=== PATIENT | male | born 1950 | race Caucasian/White ===

== ENCOUNTER → 2016-09-05 | Day surgery (SDC) | payer OTHER, MEDICARE ==
[~2016-09-05] VITALS: Ht 188 cm; Wt 115.7 kg
[~2016-09-05] MED LIST: ACTOS30 M1 PO; ASPIRIN EC81 M1 PO; B-121000 MC3 PO; COQ-10100 MG PO; DUREZOL5 ML OD; GLIMEPIRIDE2 MG PO; JANUMET 50-1,01 EACH PO; LISINOPRIL10 M1 PO; MAGNESIUM500 M2 PO; MULTAQ400 M1 PO; OMEGA 3-6-9 11200 MG PO; PLAVIX75 M1 PO; SIMVASTATIN40 M1 PO; TOPROL XL25 M1 PO; VITAMIN D2000 UNI1 PO; XARELTO15 M1 PO; ZYMAXID2.5 ML OD
--- NOTE | 2016-09-05 14:03 | Operative Report ---
Operative/Inv Procedure Report Surgery Date: 09/05/16 Name of Procedure: Cataract extraction lens implantation left eye Pre-Operative Diagnosis: Age-related cataract left eye 20/30 vision 20/80 glare vision Post-Operative Diagnosis: Same Estimated Blood Loss: none Surgeon/Keel Press Operator: CHRISTIE DEJESUS,DARIN Juarez Anesthesia: local monitored anesthesi Complications: None Operative/Procedure Note Note: The patient was brought to the operating room standard monitoring equipment was attached the patient was prepped and draped in the usual fashion for intraocular surgery. A lid speculum was placed to retract the lids. The case was begun by making a temporal incision with a 2.4 mm keratome. The eye was stabilized with a Hunter ring during this incision. 1 mL of non-preserved lidocaine was introduced into the anterior chamber to provide anesthesia. The anterior chamber was then filled and deepened with viscoelastic. A curvilinear capsulorrhexis was achieved using a 30-gauge needle and is a cystotome and capsulorrhexis was finished using a Utrata forceps. A second or paracentesis incision was made temporally with a 1 mm MVR blade. The lens was then hydrodissected with balanced salt solution and found to be rotatable. The lens was emulsified using phacoemulsification and a modified four-quadrant cracking technique. The residual cortical material was removed using automated irrigation and aspiration and as much of the anterior capsular rim was cleaned as well as possible. The posterior capsule was cleaned first with the automated machine on a low setting and then manually with a Angel squeegee. The capsular bag was deepened with viscoelastic. The lens a [Technis 1] 21.0 Diopter placed into the bag under direct visualization and rotated so that the haptics were at 12 and 6:00. Viscoelastic was then removed from the eye by flushing it out and then by automated irrigation and aspiration. The eye was pressurized to a normal tone. 1/10 of a cc of vancomycin solution was introduced into the anterior chamber to provide antibiotic prophylaxis. The wounds were sealed by hydrating the stroma adjacent to them and the eye was left at a proper tone after the wounds were checked and found not to be leaking. The lid speculum was removed from the orbit. Antibiotic and steroid drops were placed on the eye and then the eye was shielded. Monitoring equipment was removed from the patient and the patient was removed from the operative suite to the holding area. The patient tolerated the procedure well and will be seen in the office tomorrow.
== END ==
LOC: STS 03:53
DX: H25.9 Unspecified age-related cataract (principal); I10 Essential (primary) hypertension; E11.9 Type 2 diabetes mellitus without complications; Z79.84 Long term (current) use of oral hypoglycemic drugs; I25.10 Atherosclerotic heart disease of native coronary artery without angina pectoris; Z95.5 Presence of coronary angioplasty implant and graft
CPT/HCPCS: J2250; V2632

== ENCOUNTER 2016-09-12 07:09 | Inpatient (IN) | payer OTHER, MEDICARE ==
[~2016-09-12] VITALS: Ht 185.4 cm; Wt 115.7 kg
[~2016-09-12 07:09] MED LIST changes: -ACTOS30 M1 PO; -B-121000 MC3 PO; -COQ-10100 MG PO; -DUREZOL5 ML OD; -MAGNESIUM500 M2 PO; -MULTAQ400 M1 PO; -OMEGA 3-6-9 11200 MG PO; -VITAMIN D2000 UNI1 PO; -XARELTO15 M1 PO; -ZYMAXID2.5 ML OD
[2016-09-12] MEDS ORDERED: B-121000 MC3 PO (07:39)
[2016-09-12] MEDS ORDERED: MAGNESIUM500 M2 PO (07:40)
[2016-09-12] MEDS ORDERED: OMEGA 3-6-9 11200 MG PO (07:40)
[2016-09-12] MEDS ORDERED: VITAMIN D2000 UNI1 PO (07:40)
[2016-09-12 07:53] LABS: ABSOLUTE LYMPH COUNT 1.6 /CUMM (1.2-3.4); HEMATOCRIT 40.1 % (42-52); MEAN CORPUSCULAR HGB CONC 33.8 G/DL (33.0-37.0); MEAN CORPUSCULAR VOLUME 91.8 FL (80.0-94.0); MEAN PLATELET VOLUME 7.6 FL (7.4-10.4); PLATELET COUNT 190 /CUMM (130-400); RED BLOOD CELL CT 4.37 /CUMM (4.70-6.10)
--- NOTE | 2016-09-12 07:53 | ED CARDIAC/CP/PALPITATIONS ---
History of Present Illness General Chief Complaint: Chest Pain Stated Complaint: CHEST PAIN STARTING THIS MORNING Source: patient, family, old records Exam Limitations: no limitations Vital Signs & Intake/Output Vital Signs & Intake/Output Vital Signs Date Time Temp Pulse Resp B/P Pulse O2 O2 Flow FiO2 Ox Delivery Rate 09/14 0043 97.5 60 20 132/84 95 Room Air 09/13 1530 98.8 55 20 128/64 94 Room Air 09/13 1109 130/80 09/13 1108 130/80 09/13 0800 98.0 60 20 130/80 96 Room Air ED Intake and Output 09/14 0000 09/13 1200 Intake Total 1155 338 Output Total Balance 1155 338 Intake, IV 435 218 Intake, Oral 720 120 Allergies Coded Allergies: No Known Allergies (09/01/16) Reconcile Medications Aspirin (Ecotrin*) 81 MG TABLET.DR 1 TAB PO DAILY PROPH (Reported) Cholecalciferol (Vitamin D3) (Vitamin D) 2,000 UNIT TABLET 2,000 UNITS PO DAILY VITAMIN (Reported) Clopidogrel Bisulfate (Plavix) 75 MG TABLET 1 TAB PO EOD CAD (Reported) Reason to Stop at ADM: according to cardiology recommendation Cyanocobalamin (Vitamin B-12) (B-12) 1,000 MCG TABLET 1,000 MCG PO DAILY VITAMIN (Reported) Difluprednate (Durezol) 0.05 % DROPS 1 GTT OD FOUR TIMES A DAY Cataract ( Reported) Fish Oil/Borage/Flax/Om3,6,9#1 ([place] 3-6-9 1,200 MG Softgel) 1,200 MG CAPSULE 1,000 ML PO DAILY VITAMIN (Reported) Gatifloxacin (Zymaxid) 0.5 % DROPS 1 GTT OD 4 TIMES/DAY Cataract (Reported) Glimepiride 2 MG TABLET 1 TAB PO DAILY DM II (Reported) Reason to Stop at ADM: novolog s/s Lisinopril 10 MG TABLET 1 TAB PO DAILY HTN (Reported) Magnesium Oxide (Magnesium) 500 MG CAPSULE 500 MG PO DAILY VITAMIN (Reported) Metoprolol Succ XL (Toprol XL) 25 MG TAB 1 TAB PO DAILY CAD (Reported) Pioglitazone HCl (Actos) 30 MG TABLET 1 TAB PO DAILY DIABETES (Reported) Reason to Stop at ADM: novolog s/s Simvastatin (Simvastatin*) 40 MG TABLET 1 TAB PO QPM CHOLESTEROL (Reported) Sitagliptin Phos/Metformin HCl (Janumet 50-1,000 MG Tablet) 50 MG-1,000 MG TABLET 1 TAB PO BID DM II (Reported) Reason to Stop at ADM: novolog s/s Ubidecarenone (Coq-10) 100 MG CAPSULE 200 MG PO DAILY SUPPLEMENT (Reported) Reason to Stop at ADM: not needed in hospital Triage Note: Pt presents to ER with spouse c/o of midsternal chest pain that started at 530a while at work. Pt states pain feels very sharp and radiates to right ear. PT also c/o of SOB with exertion. EKG done on pt arrival showing afib. Pt states he has a hx of right sided cartoid atery occlusion. Pt states he had two stents in 2008. Pt states last week he went for his follow up u/s which showed 60% occlusion to right carotid artery. +Nausea Triage Nurses Notes Reviewed? yes HPI: Patient presents for evaluation of a sudden onset of substernal and left-sided chest pain that began about 5:30 this morning while he was getting dressed for work. Patient states it was about a 7 out of 10 pain. As he went off to work it got worse. It is a constant aching pain that radiates into the abdomen. The patient denies any jaw or arm pain but states his left ear feels full. His pain is currently a 5 out of 10. He states he had similar chest pain episodes for years and simply attributive them to "gas". In addition he had low back pain last night and took Tylenol for this, he states he did a bit of physical exertion over the past few days. He has a known cardiac history including cardiac stents. He denies prior history of dysrhythmia. Past History Travel History Traveled to [place] past 21 day No Medical History Any Pertinent Medical History? see below for history Cardiovascular: CAD, hypertension Endocrine: diabetes Surgical History Surgical History: non-contributory Psychosocial History Who do you live with Spouse Services at Home None What is your primary language Australian Tobacco Use: Never used Family History Hx Contributory? No Review of Systems Review of Systems Constitutional: Reports: no symptoms. EENTM: Reports: no symptoms. Respiratory: Reports: no symptoms. Cardiovascular: Reports: chest pain. GI: Reports: no symptoms. Genitourinary: Reports: no symptoms. Musculoskeletal: Reports: no symptoms. Skin: Reports: no symptoms. Neurological/Psychological: Reports: no symptoms. Hematologic/Endocrine: Reports: no symptoms. Immunologic/Allergic: Reports: no symptoms. All Other Systems: Reviewed and Negative Physical Exam Physical Exam Cardiovascular: SEE BELOW Comments: Gen.: Well-nourished, well-developed, no acute respiratory distress. Head: Normocephalic, atraumatic. Eyes: Normal inspection bilaterally Ears: Normal inspection bilaterally Nose: Normal inspection Throat/mouth : Moist mucosa Neck: Supple, full range of motion, no goiter Heart: IRRegular rate and rhythm, no murmurs rubs or gallops Lungs: Clear to auscultation bilaterally with normal air entry Chest: Nontender Back: Normal range of motion Abdomen: Soft, mild diffuse tenderness, nondistended, normal bowel sounds Extremities: Normal range of motion grossly, equal radial pulses, no cyanosis clubbing or edema, calves nontender Neurologic: Cranial nerves grossly intact, speech is clear Skin: warm and dry Psychiatric: Calm, cooperative, no apparent delusions or hallucinations Core Measures ACS in differential dx? No Severe Sepsis Present: No Septic Shock Present: No Progress Differential Diagnosis: AMI, aortic dissection Plan of Care: Orders Procedure Date/time Status Nothing by Mouth 09/14 B Active XRY-PORTABLE CHEST XRAY 09/14 0600 Active BASIC ELECTROLYTES PLUS BUN&CR 09/14 0600 Active PARTIAL THROMBOPLASTIN TIME 09/14 0200 Active Consistent Carbohydrate 3 09/13 D Complete PARTIAL THROMBOPLASTIN TIME 09/13 1700 Complete EKG 09/13 0656 Active TROPONIN LEVEL 09/13 0600 Complete EKG 09/13 0119 Active Current Medications Sig/Helga Start time Last Medication Dose Stop Time Status Admin Nitroglycerin 0.4 MG Q 5 MINUTES X 3 DO.. 09/12 1345 AC (Nitrostat) Acetaminophen 325 MG Q6P PRN 09/12 1115 AC (Tylenol) Acetaminophen/ 1 TAB Q6P PRN 09/12 1115 AC Hydrocodone Bitart (Vicodin) Morphine Sulfate 2 MG Q4P PRN 09/12 1115 AC (Morphine) Laboratory Tests 09/13/16 1705: APTT > 120 *H 09/13/16 0839: APTT 54 H, CBC w Diff NO MAN DIFF REQ, RBC 4.51 L, MCV 90.5, MCH 31.1 H, RDW 13.8, MPV 8.5, Gran % 61.8, Lymphocytes % 28.1, Monocytes % 7.5, Eosinophils % 2.2, Basophils % 0.4, Absolute Granulocytes 4.4, Absolute Lymphocytes 2.0, Absolute Monocytes 0.5, Absolute Eosinophils 0.2, Absolute Basophils 0, PUBS MCHC 34.3 09/13/16 0615: Anion Gap 10, Estimated GFR 47 L, BUN/Creatinine Ratio 22.0, Troponin I 0.98 *H , Triglycerides 72, Cholesterol 96, LDL Cholesterol, Calc 36 L, HDL Cholesterol 46, Cholesterol/HDL Ratio 2 09/13/16 0604: Troponin I Cancelled Initial ED EKG: AFIB, nonspecific ST T wave chg Prior EKG: changed (SINUS RHYTHM ON PRIOR) Comments: Patent patient's creatinine clearance is greater than 30, according to up-to- date no change in dosage required for Lovenox. 09/12/2016 9:33:37 AM patient's case discussed with Dr. CARRANZA, Dr. Fournier and Dr. Junior. Patient's chest pain is nearly resolved and his heart rate has improved on a Cardizem drip. Departure Departure Disposition: STILL A PATIENT Condition: Stable Clinical Impression Primary Impression: New onset atrial fibrillation Referrals: DILLON DEJESUS,BART Smith (PCP/Family) Departure Forms: Customer Survey General Discharge Information Admission Note Spoke With: EDMOND FOURNIER MD Documentation of Exam: Documentation of any treatments & extenuating circumstances including Concerns Regarding Discharge (functional status, medication knowledge or non-compliance, living conditions, etc.) that warrant an admission rather than observation: Patient is currently being treated for new-onset atrial fibrillation with IV Cardizem drip and anticoagulation with Lovenox. He is at high risk of tachycardia, hypotension and cardioembolic phenomenon. He requires continuous cardiac monitoring for the possibility of tachydysrhythmias. He will also require a cardiology consultation and initiation of anticoagulant therapy. Echocardiogram should be strongly considered to assess for clot burden. Patient will also need initiation of rate controlling medications such as Cardizem. I Feel he will require a multiple day hospitalization. Critical Care Note Critical Care Note Critical Care Time: 30-74 min
[2016-09-12 07:55] LABS: ABSOLUTE BASOPHIL COUNT 0 /CUMM (0.0-0.2); ABSOLUTE EOSINOPHIL COUNT 0.2 /CUMM (0.0-0.7); ABSOLUTE GRANULOCYTE CT 5.5 /CUMM (1.4-6.5); ABSOLUTE MONOCYTE COUNT 0.7 /CUMM (0.10-0.60); BASOPHIL % 0.3 % (0.0-2.0); EOSINOPHIL % 2.1 % (0-5); GRANULOCYTE % 69.1 % (42.2-75.2)
[2016-09-12 08:15] LABS: PT 10.7 SEC (9.4-12.5)
--- NOTE | 2016-09-12 10:32 | History & Physical ---
SUPA PEREZ MD 09/12/16 1015: General Information and HPI MD Statement: I have seen and personally examined RUDDY STUART and documented this H&P. The patient is a 65 year old M who presented with a patient stated chief complaint of [chest pain]. Source of Information: patient, old records Exam Limitations: no limitations History of Present Illness: 65 yo male with pmh of DM, HTN, CAD s/p LAD stent (2008), Lt. ICA stenosis s/p Lt. CEA (2010), GERD, questionable hemochromatosis came to ED with a chief complaint of chest pain around 5:30 am while he was getting dressed for work. Chest pain was located on mid sternum, sharp/pressure-like feeling, 7/10, radiation to epigastric area associated with epigastric discomfort/diaphoresis. He felt Lt. ear fullness. He had similar symptoms before associated with gastric burping. He c/o acid reflux/burning sensation. He denies any nausea/vomiting/ abdominal pain. He states he's a social drinker, drinking weekly beer or burbon. Last Sunday, he drank 2 shots of burbon. He smokes cigar once in a while. Allergies/Medications Allergies: Coded Allergies: No Known Allergies (09/01/16) Compliance With Home Meds: GOOD Past History Travel History Traveled to [place] past 21 day No Medical History Cardiovascular: CAD, hypertension, hyperlipidemia Endocrine: diabetes Surgical History Surgical History: cataract removal, Lt. CEA Past Family/Social History Family History Relations & Conditions if any MOTHER (Mother had CAD at age 78). FATHER (Prostate cancer). Relation not specified for: FH: coronary artery disease FH: prostate cancer Psychosocial History Where do you live? Home Who Do You Live With? spouse Services at Home: None Primary Language: Croatian Smoking Status: Current Some Day Smoker (cigar) ETOH Use: weekly, beer 6 bottles Illicit Drug Use: denies illicit drug use Functional Ability ADLs Independent: dressing, eating, toileting, bathing. Ambulation: independent IADLs Independent: shopping, housework, finances, food prep, telephone, transportation , medication admin. Employment History Employment Employed Profession/Employer Previous Teacher, gas pumping now Review of Systems Review of Systems Constitutional: Denies: chills, fever, weakness. EENTM: Reports: no symptoms. Cardiovascular: Reports: chest pain. Denies: palpitations, peripheral edema. Respiratory: Denies: cough, short of breath, wheezing. GI: Reports: abdominal pain, bloating. Denies: diarrhea, melena, nausea, bloody stool, vomiting. Genitourinary: Reports: no symptoms. Musculoskeletal: Reports: no symptoms. Skin: Reports: no symptoms. Neurological/Psychological: Reports: no symptoms. Hematologic/Endocrine: Reports: no symptoms. Immunologic/Allergic: Reports: no symptoms. Exam & Diagnostic Data Last 24 Hrs of Vital Signs/I&O Vital Signs Date Time Temp Pulse Resp B/P Pulse O2 O2 Flow FiO2 Ox Delivery Rate 09/12 0953 97 16 112/74 100 Room Air 09/12 0910 103 16 102/70 99 Room Air 09/12 0846 118 16 117/71 99 Room Air 09/12 0805 96.0 128 16 110/68 09/12 0743 98 Room Air 09/12 0741 128 20 124/68 98 Room Air 09/12 0727 96.0 144 20 98/61 96 Room Air Intake & Output 09/12 1600 09/12 0800 09/12 0000 Intake Total Output Total Balance Patient 258 lb Weight Physical Exam General Appearance Alert, Oriented X3, Cooperative, No Acute Distress Skin No Significant Lesion HEENT Atraumatic, PERRLA, EOMI, Mucous Membr. moist/pink Neck Supple, No JVD, +2 Carotid Pulse wo Bruit, No LAD Lymphatic Cervical nl Cardiovascular Normal S1, Normal S2, irregularly irregular Lungs Clear to Auscultation, Normal Air Movement Abdomen Normal Bowel Sounds, Soft, No Tenderness Neurological Normal Speech, Strength at 5/5 X4 Ext, Sensation Intact, Cranial Nerves 3-12 NL Extremities No Edema, Normal Pulses Vascular Normal Pulses, Pulses Symmetrical Last 24 Hrs of Labs/Justin: Laboratory Tests 09/12/16 0743: Anion Gap 13, Estimated GFR 47 L, BUN/Creatinine Ratio 20.0, Glucose 168 H, Calcium 9.9, Total Bilirubin 0.7, AST 31, ALT 40, Alkaline Phosphatase 52, Troponin I 0.05, Total Protein 6.7, Albumin 4.0, Globulin 2.7, Albumin/Globulin Ratio 1.5, TSH &T3 &Free T4 Intrp 1.140, PT 10.7, INR 1.02, CBC w Diff NO MAN DIFF REQ, RBC 4.37 L, MCV 91.8, MCH 31.0, RDW 14.0, MPV 7.6, Gran % 69.1, Lymphocytes % 19.7 L, Monocytes % 8.8, Eosinophils % 2.1, Basophils % 0.3, Absolute Granulocytes 5.5, Absolute Lymphocytes 1.6, Absolute Monocytes 0.7 H, Absolute Eosinophils 0.2, Absolute Basophils 0, PUBS MCHC 33.8 Diagnostic Data EKG Results A.fib with rate of 144, QTc 508, ST depression V4-6 Assessment/Plan Assessment: 65 yo male with pmh of DM, HTN, CAD s/p LAD stent (2008), Lt. ICA stenosis s/p Lt. CEA (2010), GERD came to ED with a chief complaint of chest pain around 5:30 am while he was getting dressed for work. It is located on mid sternum/Lt. chest pain, sharpm, 7/10, radiation to epigastric are associated with epigastric discomfort/diaphoresis. In [place] ED, EKG showed new onset rapid A.fib. 1. New onset rapid A.fib: Will monitor pt on telemetry. TSH/fT4 normal. Initial troponin was negative and EKG nonspecific. Will get echocardiogram and follow serial EKG/troponins. He is a social drinker, last drink on 09/09. Patient got SC lovenox 110mg in ED. After discussion with Dr. Junior, patient will be on full IV heparin for anticoagulation. Guiac was negative. Continue IV cardizem and po metoprolol for rate control. 2. Chest pain with hx of CAD s/p LAD ([place] in 2008): pt was on aspirin 81mg qd and palvix 75mg EOD as home medication. He was given aspirin 325mg in ED. Continue home dose metoprolol 25mg daily, lisinopril 10mg qd, lipitor 20mg qd. Will hold plavix while pt is on IV heparin per cardiology recommendation. Pain control. 3. DM: Last HbA1c 6.4 on 05/01/16. Hold oral medications. Diabetic diet, Accuchecks, novolog s/s TIDACHS. 4. HTN/HLD: c/w home medication metoprolol 25mg daily, lisinopril 10mg qd, lipitor 20mg qd, check lipid panel in AM. 5. CKD stage 3: Likely secondary to DM/HTN. Stable. His Cr has been 1.3-1.6 with GFR < 60. 6. Lt. ICA stenosis s/p Lt. CEA and Rt. ICA 60% stenosis: stable, c/w aspirin. DVT ppx: IV heparin, full code, pain pathway As Ranked By This Provider Problem List: 1. New onset atrial fibrillation 2. History of coronary artery disease 3. Diabetes 4. Chronic kidney disease Core Measures/Miscellaneous Acute Coronary Syndrome ACS Diagnosis: No Cerebrovascular Accident CVA/TIA Diagnosis: No Congestive Heart Failure CHF Diagnosis: No Venous Thromboembolism VTE Risk Factors: Acute medical illness, Age > 40, Obesity No [facility] VTE prophylaxis d/t: No contraindications No VTE Pharm Prophylaxis d/t: No contraindications VTE Diagnosis: No VTE Type: NONE VTE Confirmed by (Test): NONE Severe Sepsis Severe Sepsis Present: No Septic Shock Septic Shock Present: No Miscellaneous Documentation Attending Case Discussed With: EDMOND TERRY MD Primary Care Physician: BART CARRANZA MD Patient sees these Specialists Dr. Ayala-cardiology Level of Patient Care: Telemetry Consults Needed: Consulting Specialty: Cardiology Consulting Physician: Dr. Junior Reason for Consult: New onset A.fib EDMOND TERRY MD 09/12/16 1750: General Information and HPI Allergies/Medications Home Med list Aspirin (Ecotrin*) 81 MG TABLET. 1 TAB PO DAILY PROPH (Reported) Cholecalciferol (Vitamin D3) (Vitamin D) 2,000 UNIT TABLET 2,000 UNITS PO DAILY VITAMIN (Reported) Clopidogrel Bisulfate (Plavix) 75 MG TABLET 1 TAB PO EOD CAD (Reported) Reason to Stop at ADM: according to cardiology recommendation Cyanocobalamin (Vitamin B-12) (B-12) 1,000 MCG TABLET 1,000 MCG PO DAILY VITAMIN (Reported) Difluprednate (Durezol) 0.05 % DROPS 1 GTT OD FOUR TIMES A DAY Cataract ( Reported) Fish Oil/Borage/Flax/Om3,6,9#1 ([place] 3-6-9 1,200 MG Softgel) 1,200 MG CAPSULE 1,000 ML PO DAILY VITAMIN (Reported) Gatifloxacin (Zymaxid) 0.5 % DROPS 1 GTT OD 4 TIMES/DAY Cataract (Reported) Glimepiride 2 MG TABLET 1 TAB PO DAILY DM II (Reported) Reason to Stop at ADM: novolog s/s Lisinopril 10 MG TABLET 1 TAB PO DAILY HTN (Reported) Magnesium Oxide (Magnesium) 500 MG CAPSULE 500 MG PO DAILY VITAMIN (Reported) Metoprolol Succ XL (Toprol XL) 25 MG TAB 1 TAB PO DAILY CAD (Reported) Pioglitazone HCl (Actos) 30 MG TABLET 1 TAB PO DAILY DIABETES (Reported) Reason to Stop at ADM: novolog s/s Simvastatin (Simvastatin*) 40 MG TABLET 1 TAB PO QPM CHOLESTEROL (Reported) Sitagliptin Phos/Metformin HCl (Janumet 50-1,000 MG Tablet) 50 MG-1,000 MG TABLET 1 TAB PO BID DM II (Reported) Reason to Stop at ADM: novolog s/s Ubidecarenone (Coq-10) 100 MG CAPSULE 200 MG PO DAILY SUPPLEMENT (Reported) Reason to Stop at ADM: not needed in hospital Attending MD Review Statement Attending Statement Attending MD Statement: examined this patient, discuss w/resident/PA/TELEMETRY NURSE, agreed w/resident/PA/TELEMETRY NURSE, discussed with family, reviewed EMR data (avail)
[2016-09-12] MEDS ORDERED: ACTOS30 M1 PO (10:47)
[2016-09-12] MEDS ORDERED: COQ-10100 MG PO (10:48)
--- NOTE | 2016-09-12 11:11 | Cons- Cardiology ---
General Information and HPI Consulting Request Date of Consult: 09/12/16 Requested By: Dr Katey Fournier Reason for Consult: New onset atrial fibrillation Source of Information: patient, old records Exam Limitations: no limitations History of Present Illness: Patient is a 65 yo male with a history of coronary artery disease S/P BMS of LAD followed by LORETTA also to the LAD in 2008, hypertension, diabetes, hyperlipidemia, hemochromatosis, who presents with chest pain. Patient states that he awoke this morning and described a vague chest heaviness. He states that he has had somewhat similar symptoms in the past of brief duration that resolved spontaneously. Occasionally it is relieved with burping. Today he states that the symptoms persisted he went to work and then began developing a feeling of fogginess along with diaphoresis. He then presented to the emergency room where he was found to be in rapid atrial fibrillation. He does state that he has had some abdominal discomfort with this episode. He denies PND or orthopnea but he does note mild ankle edema at the end of the day. He does describe alcohol use of approximately 6 beers a day and occasional bourbon. He stated that prior to his stents he did develop some mild shortness of breath along with vague chest discomfort. His most recent stress test was in 2014 where he was found to have an ejection fraction of 55% with posterior basal infarct. Allergies/Medications Allergies: Coded Allergies: No Known Allergies (09/01/16) Home Med List: Aspirin (Ecotrin*) 81 MG TABLET. 1 TAB PO DAILY PROPH (Reported) Cholecalciferol (Vitamin D3) (Vitamin D) 2,000 UNIT TABLET 2,000 UNITS PO DAILY VITAMIN (Reported) Clopidogrel Bisulfate (Plavix) 75 MG TABLET 1 TAB PO EOD CAD (Reported) Reason to Stop at ADM: according to cardiology recommendation Cyanocobalamin (Vitamin B-12) (B-12) 1,000 MCG TABLET 1,000 MCG PO DAILY VITAMIN (Reported) Fish Oil/Borage/Flax/Om3,6,9#1 ([place] 3-6-9 1,200 MG Softgel) 1,200 MG CAPSULE 1,000 ML PO DAILY VITAMIN (Reported) Glimepiride 2 MG TABLET 1 TAB PO DAILY DM II (Reported) Reason to Stop at ADM: novolog s/s Lisinopril 10 MG TABLET 1 TAB PO DAILY HTN (Reported) Magnesium Oxide (Magnesium) 500 MG CAPSULE 500 MG PO DAILY VITAMIN (Reported) Metoprolol Succ XL (Toprol XL) 25 MG TAB 1 TAB PO DAILY CAD (Reported) Pioglitazone HCl (Actos) 30 MG TABLET 1 TAB PO DAILY DIABETES (Reported) Reason to Stop at ADM: novolog s/s Simvastatin (Simvastatin*) 40 MG TABLET 1 TAB PO QPM CHOLESTEROL (Reported) Sitagliptin Phos/Metformin HCl (Janumet 50-1,000 MG Tablet) 50 MG-1,000 MG TABLET 1 TAB PO BID DM II (Reported) Reason to Stop at ADM: novolog s/s Ubidecarenone (Coq-10) 100 MG CAPSULE 200 MG PO DAILY SUPPLEMENT (Reported) Reason to Stop at ADM: not needed in hospital Review of Systems Review of Systems: Eyes no blurred or double vision Ears no deafness or ringing Nose and throat no recurrent sinusitis Lungs per history of present illness Heart per history of present illness Abdomen no nausea vomiting Musculoskeletal occasional muscle and joint pains Psych no anxiety or depression Neuro without recurrent headache or seizures Endocrine no heat or cold intolerance Past History Travel History Traveled to [place] past 21 day No Medical History Cardiovascular: CAD, hypertension, hyperlipidemia Endocrine: diabetes Surgical History Surgical History: Lt. CEA Family History Relations & Conditions If Any: MOTHER (Mother had CAD at age 78). FATHER (Prostate cancer). Relation not specified for: FH: coronary artery disease FH: prostate cancer Psychosocial History Where Do You Live? Home Who Do You Live With? spouse Services at Home: None Primary Language: Belarusian Smoking Status: Current Some Day Smoker (cigar) Functional Ability ADLs Independent: dressing, eating, toileting, bathing. Ambulation: independent IADLs Independent: shopping, housework, finances, food prep, telephone, transportation , medication admin. Employment History Employment: Employed Profession/Employer Teacher Exam & Diagnostic Data Vital Signs and I&O Vital Signs Date Time Temp Pulse Resp B/P Pulse O2 O2 Flow FiO2 Ox Delivery Rate 09/12 0953 97 16 112/74 100 Room Air 09/12 0910 103 16 102/70 99 Room Air 09/12 0846 118 16 117/71 99 Room Air 09/12 0805 96.0 128 16 110/68 09/12 0743 98 Room Air 09/12 0741 128 20 124/68 98 Room Air 09/12 0727 96.0 144 20 98/61 96 Room Air Intake & Output 09/12 0000 09/11 0809/11 0000 Intake Total Output Total Balance Patient 258 lb Weight Physical Exam: Patient is a well-developed well-nourished male appearing in no acute distress HEENT is unremarkable Neck is supple there is no JVD Lungs are clear Heart irregular rhythm S1 and S2 are normal no murmurs gallops or rubs Abdomen bowel sounds positive mild tenderness to palpation Extremities trace edema Labs/Justin Results: Laboratory Tests 09/12 0743 Chemistry Sodium (137 - 145 mmol/L) 140 Potassium (3.5 - 5.1 mmol/L) 4.4 Chloride (98 - 107 mmol/L) 106 Carbon Dioxide (22 - 30 mmol/L) 21 L Anion Gap (5 - 16) 13 BUN (9 - 20 mg/dL) 30 H Creatinine (0.7 - 1.2 mg/dL) 1.5 H Estimated GFR (>60 ml/min) 47 L BUN/Creatinine Ratio (7 - 25 %) 20.0 Glucose (65 - 99 mg/dL) 168 H Calcium (8.4 - 10.2 mg/dL) 9.9 Magnesium (1.6 - 2.3 mg/dL) 1.7 Total Bilirubin (0.2 - 1.3 mg/dL) 0.7 AST (17 - 59 U/L) 31 ALT (21 - 72 U/L) 40 Alkaline Phosphatase (< 127 U/L) 52 Troponin I (<0.11 ng/ml) 0.05 Total Protein (6.3 - 8.2 g/dL) 6.7 Albumin (3.5 - 5.0 g/dL) 4.0 Globulin (1.9 - 4.2 gm/dL) 2.7 Albumin/Globulin Ratio (1.1 - 2.2 %) 1.5 TSH &T3 &Free T4 Intrp (0.27 - 4.20 uIU/mL) 1.140 Coagulation PT (9.4 - 12.5 SEC) 10.7 INR (0.90 - 1.17) 1.02 Hematology CBC w Diff NO MAN DIFF REQ WBC (4.8 - 10.8 /CUMM) 8.0 RBC (4.70 - 6.10 /CUMM) 4.37 L Hgb (14.0 - 18.0 G/DL) 13.6 L Hct (42 - 52 %) 40.1 L MCV (80.0 - 94.0 FL) 91.8 MCH (27.0 - 31.0 PG) 31.0 RDW (11.5 - 14.5 %) 14.0 Plt Count (130 - 400 /CUMM) 190 MPV (7.4 - 10.4 FL) 7.6 Gran % (42.2 - 75.2 %) 69.1 Lymphocytes % (20.5 - 51.1 %) 19.7 L Monocytes % (1.7 - 9.3 %) 8.8 Eosinophils % (0 - 5 %) 2.1 Basophils % (0.0 - 2.0 %) 0.3 Absolute Granulocytes (1.4 - 6.5 /CUMM) 5.5 Absolute Lymphocytes (1.2 - 3.4 /CUMM) 1.6 Absolute Monocytes (0.10 - 0.60 /CUMM) 0.7 H Absolute Eosinophils (0.0 - 0.7 /CUMM) 0.2 Absolute Basophils (0.0 - 0.2 /CUMM) 0 PUBS MCHC (33.0 - 37.0 G/DL) 33.8 Diagnostic Data EKG Results Atrial fibrillation with rapid ventricular response nonspecific ST-T wave changes Assessment/Plan Assessment/Plan 1. New onset atrial fibrillation with questionable etiology. Thyroid disease been ruled out with a normal TSH and his troponins are thus far negative. This may indeed be lone atrial fibrillation. Remote possibility of alcohol induced atrial fibrillation must also be considered. 2. Coronary disease by history status post bare-metal stent followed by LORETTA to the LAD in 2008 with normal LV function on stress test performed in 2014. The patient is now experiencing episodes of chest discomfort which is certainly of concern for cardiac etiology. There are no changes on the EKG suggested of an acute infarction. 3. Hemochromatosis by history 4. Hypertension 5. Diabetes 6. Hyperlipidemia Recommendations 1. Patient will be admitted to telemetry 2. As discussed with residents would place him on IV heparin along with IV Cardizem 3. Would trend troponins 4. Obtain an echocardiogram to assess LV function along with left atrial size 5. Dependent upon his hospital course he will require a ischemic workup. Thank you for allowing [facility] to participate in the care of your patient. Consult Acknowledgment - Thank you for your consult request.
[2016-09-12 12:29] LABS: PTT 32 SEC (25-37)
[2016-09-12] MEDS ORDERED: ZYMAXID2.5 ML OD (14:58)
[2016-09-12] MEDS ORDERED: DUREZOL5 ML OD (14:58)
[2016-09-12 16:24] VITALS: BP 108/60
--- NOTE | 2016-09-12 17:46 | Admission Certification ---
Admission Certification Certification Statement - As attending physician, I certify that at the time of - admission, based on clinical presentation, severity of - symptoms, need for further diagnostic testing and - therapeutic interventions, and risk of adverse outcomes - without in-hospital treatment, in my clinical assessment, - this patient requires an acute hospital stay for a minimum - of two nights or longer. I have also considered psychsocial - factors such as support system, advanced age, financial - issues, cognitive issues, and failed out-patient treatments, - past re-admission history, safety of patient, and lack of - compliance as applicable. Specific rationale supporting this admission is: new onset atrial fibrillation
--- NOTE | 2016-09-12 17:50 | PN- Att Addend ---
Attending Addendum Attending Brief Note Patient remains asymptomatic on evaluation this morning General Appearance: Alert, No Acute Distress Skin: Grossly normal HEENT: PEERLA Neck: Supple, No JVD Cardiovascular: Regular Rate, Normal S1, Normal S2, No Murmurs Lungs: Clear to Auscultation, Normal Air Movement Abdomen: Soft non tender abdomen, normal bowel sounds Neurological: Normal Speech, Strength at 5/5 X4 Ext, Cranial Nerves 3-12 NL, Reflexes 2+ Extremities: No Clubbing, No Cyanosis, No Edema Vascular: Normal Pulses Assessment 65-year-old with history of diabetes, hypertension, coronary artery disease status post stent, GERD presenting with chest pain this morning to the ER. Patient was found to be in atrial fibrillation of new onset. Patient will need inpatient workup for new onset atrial fibrillation including planned for long- term anticoagulation and also echocardiogram. Plan Heparin drip Rate control per cardiology Echocardiogram Rule out ACS with serial troponins and EKGs May continue home diabetic medications and insulin sliding scale DVT prophylaxis as above
--- NOTE | 2016-09-12 19:53 | ECHOCARDIOGRAM REPORT ---
RUDDY STUART Age: 65 : 1950 Gender: M Exam Date: 09/12/2016 10:56 Exam Location: ER Ht (in): 73 Wt (lb): 285 BSA: 2.63 BP: 112 / 74 Ordering Physician: SUPA PEREZ MD Referring Physician: SUPA PEREZ MD Technologist: Neda Kramer Room Number: ER01 Indications: AFIB/FLUTTER Rhythm: Atrial fibrillation Technical Quality: fair FINDINGS Left Ventricle Normal global left ventricular size, wall thickness, systolic function with no obvious regional wall motion abnormalities. Normal left ventricular ejection fraction estimated at 55-60%. Right Ventricle Normal right ventricular size and function. Right Atrium Normal right atrial size. Left Atrium Left atrial size at the upper limits of normal. Mitral Valve Mitral valve not well visualized, grossly normal. Trace mitral regurgitation. Aortic Valve Aortic valve not well visualized, grossly normal. Tricuspid Valve Tricuspid valve is normal in structure and function. Mild tricuspid regurgitation. Right ventricular systolic pressure estimated to be within the normal range at 25 mmHg. Pulmonic Valve Pulmonic valve not well visualized, grossly normal. Pericardium No pericardial effusion. Great Vessels Normal size aortic root. CONCLUSIONS Normal left and right ventricular systolic function. No significant valvular abnormalities noted. Haile Ayala M.D. (Electronically Signed) Final Date: 12 September 2016 19:53 MEASUREMENTS (Male / Female) Normal Values 2D ECHO LVOT Diameter 2.6 cm Aortic Root Diameter 3.5 cm LA Systolic Diameter LX 3.4 cm 3.0 - 4.0 / 2.7 - 3.8 cm LV Ejection Fraction MOD BP 54.5 % >= 55 % LV Diastolic Length 4C 7.6 cm 6.9 - 10.3 cm LV Diastolic Area 4C 24.9 cm LV Diastolic Volume MOD 4C 72.0 cm LV Ejection Fraction MOD 4C 56.9 % LV Stroke Volume MOD 4C 41.0 cm LV Systolic Length 4C 5.9 cm LV Systolic Area 4C 14.9 cm LV Systolic Volume MOD 4C 31.0 cm LV Ejection Fraction MOD 2C 52.5 % LV Diastolic Volume 4C AL 69.3 cm 85 - 139 / 69 - 109 cm LV Systolic Volume 4C AL 31.9 cm LV Ejection Fraction 4C AL 53.9 % LV Stroke Volume 4C AL 37.3 cm LV Ejection Fraction 2C AL 48.6 % DOPPLER AV Peak Velocity 100.0 cm/s AV Peak Gradient 4.0 mmHg AV Mean Velocity 62.6 cm/s AV Mean Gradient 2.0 mmHg AV Velocity Time Integral 16.7 cm LVOT Peak Velocity 69.1 cm/s LVOT Peak Gradient 1.9 mmHg LVOT Mean Velocity 41.9 cm/s LVOT Mean Gradient 1.0 mmHg LVOT Velocity Time Integral 11.9 cm LVOT Stroke Volume 63.2 cm AV Area Cont Eq vti 3.8 cm AV Area Cont Eq pk 3.7 cm Mitral E Point Velocity 96.3 cm/s MV Deceleration Time 88.0 ms MR Peak Velocity 230.0 cm/s MR Peak Gradient 21.2 mmHg TR Peak Velocity 210.0 cm/s TR Peak Gradient 17.6 mmHg PV Peak Velocity 86.2 cm/s PV Peak Gradient 3.0 mmHg PV Mean Velocity 67.7 cm/s PV Mean Gradient 2.0 mmHg PV Velocity Time Integral 16.2 cm LV E' Lateral Velocity 16.2 cm/s Mitral E to LV E' Lateral Ratio 5.9 LV E' Septal Velocity 8.8 cm/s Mitral E to LV E' Septal Ratio 11.0
[2016-09-12 21:21] LABS: PTT 79 SEC (25-37)
[2016-09-13 00:18] VITALS: BP 94/60
[2016-09-13 08:00] VITALS: BP 130/80
--- NOTE | 2016-09-13 08:09 | PN- Housestaff ---
Subjective Follow-up For: Chest pain New onset A.fib now in SR Complaints: no complaints Tele-Events Since Last Visit: SR, rate 63 Subjective: seen and examined, setting inthe chair comfortable with no acute distress, he slept well over night with no more chest pain. he denies palpitaion , vision changes, nausea or vomiting. No fever, chills and no change in urinary or bowel habit. Review of Systems Constitutional: Reports: no symptoms. EENTM: Reports: no symptoms. Cardiovascular: Reports: no symptoms. Respiratory: Reports: no symptoms. Gastrointestinal: Reports: no symptoms. Genitourinary: Reports: no symptoms. Musculoskeletal: Reports: no symptoms. Skin: Reports: no symptoms. Objective Last 24 Hrs of Vital Signs/I&O Vital Signs Date Time Temp Pulse Resp B/P Pulse O2 O2 Flow FiO2 Ox Delivery Rate 09/13 08 98.0 60 20 130/80 96 Room Air 09/13 0018 98.7 62 20 94/60 93 Room Air 09/12 1624 97.9 106 20 108/60 95 Room Air 09/12 1537 117 109/59 09/12 1427 97.8 108 18 95/55 96 Room Air 09/12 1404 100 16 100/50 100 Room Air 09/12 1218 96 18 115/86 98 Room Air Intake & Output 09/13 1600 09/13 0800 09/13 0000 Intake Total 338 488 Output Total Balance 338 488 Intake, IV 218 248 Intake, Oral 120 240 Patient 255 lb Weight Physical Exam General Appearance: Alert, Oriented X3, Cooperative, No Acute Distress Skin: No Rashes, No Breakdown, No Significant Lesion HEENT: Atraumatic, PERRLA, EOMI, Mucous Membr. moist/pink Neck: Supple, No JVD Cardiovascular: Regular Rate, Normal S1, Normal S2, No Murmurs Lungs: Clear to Auscultation, Normal Air Movement Abdomen: Normal Bowel Sounds, Soft, No Tenderness Neurological: Strength at 5/5 X4 Ext, Normal Tone, Sensation Intact Extremities: No Edema, Normal Pulses Vascular: Normal Pulses, Pulses Symmetrical Current Medications: Current Medications Sig/Helga Start time Last Medication Dose Route Stop Time Status Admin Acetaminophen 325 MG Q6P PRN 09/12 1115 AC PO Acetaminophen/ 1 TAB Q6P PRN 09/12 1115 AC Hydrocodone Bitart PO Aspirin Buffered 81 MG DAILY 09/13 1000 AC PO Atorvastatin Calcium 20 MG 1700 09/12 1700 AC 09/12 PO 1852 Cholecalciferol 1,000 IU DAILY 09/13 1000 AC PO Cyanocobalamin 1,000 MCG DAILY 09/13 1000 AC PO Diltiazem HCl 125 MG Q12H 09/12 0800 DC 09/12 Sodium Chloride 100 ML IV 1946 Fish Oil 1,050 MG DAILY 09/13 1000 AC PO Gatifloxacin 1 GTT FOUR TIMES A DAY 09/12 2100 AC OPH Glimepiride 2 MG DAILY 09/13 1000 AC PO Heparin Sodium 25,000 UNIT Q24H 09/12 1200 AC 09/12 (Porcine) IV 1209 Sodium Chloride 500 ML Insulin Aspart 0 TIDAC/HS 09/12 1115 AC 09/13 SC 0808 Lisinopril 10 MG DAILY 09/13 1000 AC PO Magnesium Oxide 400 MG DAILY 09/12 1200 AC 09/12 PO 1215 Metoprolol Succinate 25 MG DAILY 09/13 1000 AC PO Morphine Sulfate 2 MG Q4P PRN 09/12 1115 AC IV Nitroglycerin 0.4 MG Q 5 MINUTES X 3 DO.. 09/12 1345 AC SL Omeprazole 40 MG DAILY AC 09/13 0700 AC 09/13 PO 0552 Pioglitazone HCl 30 MG DAILY 09/13 1000 AC PO Last 24 Hrs of Lab/Justin Results Last 24 Hrs of Labs/Mics: Laboratory Tests 09/13/16 0839: APTT Pending, CBC w Diff Pending, WBC Pending, RBC Pending, Hgb Pending, Hct Pending, MCV Pending, MCH Pending, RDW Pending, Plt Count Pending, MPV Pending, PUBS MCHC Pending 09/13/16 0615: Anion Gap 10, Estimated GFR 47 L, BUN/Creatinine Ratio 22.0, Troponin I 0.98 *H , Triglycerides 72, Cholesterol 96, LDL Cholesterol, Calc 36 L, HDL Cholesterol 46, Cholesterol/HDL Ratio 2 09/13/16 0604: Troponin I Cancelled 09/12/16 2005: Troponin I 1.42 *H, APTT 79 H 09/12/16 1351: Troponin I 1.37 *H Assessment/Plan Assessment: 65 yo male with pmh of DM, HTN, CAD s/p LAD stent (2008), Lt. ICA stenosis s/p Lt. CEA (2010), GERD came to ED with a chief complaint of chest pain around 5:30 am while he was getting dressed for work. It is located on mid sternum/Lt. chest pain, sharpm, 7/10, radiation to epigastric are associated with epigastric discomfort/diaphoresis. In [place] ED, EKG showed new onset rapid A.fib. 1. New onset rapid A.fib now converted back on SR: Will continue to monitor pt on telemetry. Jef casanova dc, will continue Metoprolol 25 mg po daily (home meds). 2. Chest pain with hx of CAD s/p LAD (LORETTA in 2008): pt was on aspirin 81mg qd and palvix 75mg EOD as home medication. He was given aspirin 325mg in ED. Continue home dose metoprolol 25mg daily, lisinopril 10mg qd, lipitor 20mg qd. Will hold plavix while pt is on IV heparin per cardiology recommendation. Pain control. Troponin trending down. 3. DM: Last HbA1c 6.4 on 05/01/16. Hold oral medications. Diabetic diet, Accuchecks, novolog s/s TIDACHS. per attending glimiperide and pioglitazone is continued will hold on Janumet for now. 4. HTN/HLD: c/w home medication metoprolol 25mg daily, lisinopril 10mg qd, lipitor 20mg qd, check lipid panel in AM. 5. CKD stage 3: Likely secondary to DM/HTN. Stable. His Cr has been 1.3-1.6 with GFR < 60. 6. Lt. ICA stenosis s/p Lt. CEA and Rt. ICA 60% stenosis: stable, c/w aspirin. DVT ppx: IV heparin, full code, pain pathway Problem List: 1. New onset atrial fibrillation 2. Elevated troponin Pain Ratin Pain Location: - Pain Goal: Remain pain free Pain Plan: - Tomorrow's Labs & Rationales: cbc, bep DVT/Prophylaxis: pharmacological Consulting Request: Consulting Specialty: Cardiology Consulting Physician: Dr. Junior Reason for Consult: New onset A.fib
--- NOTE | 2016-09-13 09:17 | PN- Att Addend ---
Attending Addendum Attending Brief Note Patient remains asymptomatic on evaluation this morning General Appearance: Alert, No Acute Distress Skin: Grossly normal HEENT: PEERLA Neck: Supple, No JVD Cardiovascular: Regular Rate, Normal S1, Normal S2, No Murmurs Lungs: Clear to Auscultation, Normal Air Movement Abdomen: Soft non tender abdomen, normal bowel sounds Neurological: Normal Speech, Strength at 5/5 X4 Ext, Cranial Nerves 3-12 NL, Reflexes 2+ Extremities: No Clubbing, No Cyanosis, No Edema Vascular: Normal Pulses Assessment Patient reverted to normal sinus rhythm. Positive troponins now trending down and echocardiogram shows preserved ejection fraction. We'll defer the choice of full anticoagulation to cardiology. Likely troponin is demand. However he'll need further workup can be done as outpatient. Plan A. fib/NSTEMI management per cardiology May continue home diabetic medications and insulin sliding scale DVT prophylaxis Current Medications Sig/Helga Start time Last Medication Dose Route Stop Time Status Admin Acetaminophen 325 MG Q6P PRN 09/12 1115 AC PO Acetaminophen/ 1 TAB Q6P PRN 09/12 1115 AC Hydrocodone Bitart PO Aspirin 0 .STK-MED ONE 09/12 0958 DC PO Aspirin 325 MG ONCE ONE 09/12 0945 DC 09/12 PO 09/12 0946 0957 Aspirin Buffered 81 MG DAILY 09/13 1000 AC PO Atorvastatin Calcium 20 MG 1700 09/12 1700 AC 09/12 PO 1852 Cholecalciferol 1,000 IU DAILY 09/13 1000 AC PO Cyanocobalamin 1,000 MCG DAILY 09/13 1000 AC PO Diltiazem HCl 125 MG Q12H 09/12 0800 DC 09/12 Sodium Chloride 100 ML IV 1946 Fish Oil 1,050 MG DAILY 09/13 1000 AC PO Gatifloxacin 1 GTT FOUR TIMES A DAY 09/12 2100 AC OPH Heparin Sodium 25,000 UNIT Q24H 09/12 1200 AC 09/12 (Porcine) IV 1209 Sodium Chloride 500 ML Insulin Aspart 0 TIDAC/HS 09/12 1115 AC 09/13 SC 0808 Lisinopril 10 MG DAILY 09/13 1000 AC PO Magnesium Oxide 400 MG DAILY 09/12 1200 AC 09/12 PO 1215 Metoprolol Succinate 25 MG DAILY 09/13 1000 AC PO Morphine Sulfate 2 MG Q4P PRN 09/12 1115 AC IV Nitroglycerin 0.4 MG Q 5 MINUTES X 3 DO.. 04/11 1345 AC SL Omeprazole 40 MG DAILY AC 09/13 0700 AC 09/13 PO 0552 Laboratory Tests 09/13 09/13 09/13 09/12 0839 0615 0604 2004 Chemistry Sodium (137 - 145 mmol/L) 137 Potassium (3.5 - 5.1 mmol/L) 4.5 Chloride (98 - 107 mmol/L) 106 Carbon Dioxide (22 - 30 mmol/L) 22 Anion Gap (5 - 16) 10 BUN (9 - 20 mg/dL) 33 H Creatinine (0.7 - 1.2 mg/dL) 1.5 H Estimated GFR (>60 ml/min) 47 L BUN/Creatinine Ratio (7 - 25 %) 22.0 Troponin I (<0.11 ng/ml) 0.98 *H Cancelled 1.42 *H Triglycerides (<150 mg/dL) 72 Cholesterol (< 200 MG/DL) 96 LDL Cholesterol, Calc (65 - 129 mg/dL) 36 L HDL Cholesterol (40 - 60 mg/dL) 46 Cholesterol/HDL Ratio (0.00 - 4.88 %) 2 Coagulation APTT (25 - 37 SEC) Pending 79 H Hematology CBC w Diff Pending WBC Pending RBC Pending Hgb Pending Hct Pending MCV Pending MCH Pending RDW Pending Plt Count Pending MPV Pending PUBS MCHC Pending 09/12 1351 Chemistry Troponin I (<0.11 ng/ml) 1.37 *H Vital Signs Date Time Temp Pulse Resp B/P Pulse O2 O2 Flow FiO2 Ox Delivery Rate 09/13 0800 98.0 60 20 130/80 96 Room Air 09/13 0018 98.7 62 20 94/60 93 Room Air 09/12 1624 97.9 106 20 108/60 95 Room Air 09/12 1537 117 109/59 09/12 1427 97.8 108 18 95/55 96 Room Air 09/12 1404 100 16 100/50 100 Room Air 09/12 1218 96 18 115/86 98 Room Air 09/12 0953 97 16 112/74 100 Room Air
[2016-09-13 10:40] LABS: PTT 54 SEC (25-37)
[2016-09-13 10:41] LABS: ABSOLUTE BASOPHIL COUNT 0 /CUMM (0.0-0.2); ABSOLUTE EOSINOPHIL COUNT 0.2 /CUMM (0.0-0.7); ABSOLUTE GRANULOCYTE CT 4.4 /CUMM (1.4-6.5); ABSOLUTE MONOCYTE COUNT 0.5 /CUMM (0.10-0.60); BASOPHIL % 0.4 % (0.0-2.0); EOSINOPHIL % 2.2 % (0-5); GRANULOCYTE % 61.8 % (42.2-75.2); HEMATOCRIT 40.8 % (42-52); MEAN CORPUSCULAR HGB 31.1 PG (27.0-31.0); MEAN CORPUSCULAR HGB CONC 34.3 G/DL (33.0-37.0); MEAN CORPUSCULAR VOLUME 90.5 FL (80.0-94.0); MEAN PLATELET VOLUME 8.5 FL (7.4-10.4); PLATELET COUNT 188 /CUMM (130-400); RBC DISTRIBUTION WIDTH 13.8 % (11.5-14.5); RED BLOOD CELL CT 4.51 /CUMM (4.70-6.10); WHITE BLOOD CELL COUNT 7.1 /CUMM (4.8-10.8)
--- NOTE | 2016-09-13 12:27 | PN- Cardiology ---
See Addendum Subjective Subjective: Patient is feeling well this morning with no active symptoms. He converted back to the sinus rhythm overnight. Objective Vital Signs and I&Os Vital Signs Date Time Temp Pulse Resp B/P Pulse O2 O2 Flow FiO2 Ox Delivery Rate 09/13 1109 130/80 09/13 1108 130/80 09/13 0800 98.0 60 20 130/80 96 Room Air 09/13 0018 98.7 62 20 94/60 93 Room Air 09/12 1624 97.9 106 20 108/60 95 Room Air 09/12 1537 117 109/59 09/12 1427 97.8 108 18 95/55 96 Room Air 09/12 1404 100 16 100/50 100 Room Air 09/12 1218 96 18 115/86 98 Room Air Intake & Output 09/13 1600 09/13 0800 09/13 0000 09/12 1600 09/12 0800 09/12 0000 Intake Total 338 488 Output Total Balance 338 488 Intake, IV 218 248 Intake, Oral 120 240 Patient 255 lb 258 lb Weight Physical Exam: General: no apparent distress. Alert. Eyes: No obvious scleral icterus. HEENT: No jugular venous distention or abnormal jugular venous pulsations. Cardiovascular: Normal intensity S1/S2. Regular. Respiratory: No rales or rhonchi Abdomen: no guarding or rebound tenderness. Musculoskeletal: No clubbing or cyanosis noted, no edema Skin: Warm Neurologic: No gross focal deficits noted. Lymph: No gross lymphadenopathy. Current Medications: Current Medications Sig/Helga Start time Last Medication Dose Route Stop Time Status Admin Acetaminophen 325 MG Q6P PRN 09/12 1115 AC PO Acetaminophen/ 1 TAB Q6P PRN 09/12 1115 AC Hydrocodone Bitart PO Aspirin Buffered 81 MG DAILY 09/13 1000 AC 09/13 PO 1108 Atorvastatin Calcium 20 MG 1700 09/12 1700 AC 09/12 PO 1852 Cholecalciferol 1,000 IU DAILY 09/13 1000 AC 09/13 PO 1109 Cyanocobalamin 1,000 MCG DAILY 09/13 1000 AC 09/13 PO 1109 Diltiazem HCl 125 MG Q12H 09/12 0800 DC 09/12 Sodium Chloride 100 ML IV 1946 Fish Oil 1,050 MG DAILY 09/13 1000 AC 09/13 PO 1108 Gatifloxacin 1 GTT FOUR TIMES A DAY 09/12 2100 AC 09/13 OPH 1112 Glimepiride 2 MG DAILY 09/13 1000 AC 09/13 PO 1108 Heparin Sodium 25,000 UNIT Q24H 09/12 1200 AC 09/13 (Porcine) IV 1110 Sodium Chloride 500 ML Insulin Aspart 0 TIDAC/HS 09/12 1115 AC 09/13 SC 1213 Lisinopril 10 MG DAILY 09/13 1000 AC 09/13 PO 1108 Magnesium Oxide 400 MG DAILY 09/12 1200 AC 09/13 PO 1108 Metoprolol Succinate 25 MG DAILY 09/13 1000 AC 09/13 PO 1109 Morphine Sulfate 2 MG Q4P PRN 09/12 1115 AC IV Nitroglycerin 0.4 MG Q 5 MINUTES X 3 DO.. 09/12 1345 AC SL Omeprazole 40 MG DAILY AC 09/13 0700 AC 09/13 PO 0552 Pioglitazone HCl 30 MG DAILY 09/13 1000 AC 09/13 PO 1107 Results Last 48 Hrs of Labs/Mics: Laboratory Tests 09/13/16 0839: APTT 54 H, CBC w Diff NO MAN DIFF REQ, RBC 4.51 L, MCV 90.5, MCH 31.1 H, RDW 13.8, MPV 8.5, Gran % 61.8, Lymphocytes % 28.1, Monocytes % 7.5, Eosinophils % 2.2, Basophils % 0.4, Absolute Granulocytes 4.4, Absolute Lymphocytes 2.0, Absolute Monocytes 0.5, Absolute Eosinophils 0.2, Absolute Basophils 0, PUBS MCHC 34.3 09/13/16 0615: Anion Gap 10, Estimated GFR 47 L, BUN/Creatinine Ratio 22.0, Troponin I 0.98 *H , Triglycerides 72, Cholesterol 96, LDL Cholesterol, Calc 36 L, HDL Cholesterol 46, Cholesterol/HDL Ratio 2 09/13/16 0604: Troponin I Cancelled 09/12/16 2005: Troponin I 1.42 *H, APTT 79 H 09/12/16 1351: Troponin I 1.37 *H 09/12/16 0743: Anion Gap 13, Estimated GFR 47 L, BUN/Creatinine Ratio 20.0, Glucose 168 H, Calcium 9.9, Magnesium 1.7, Total Bilirubin 0.7, AST 31, ALT 40, Alkaline Phosphatase 52, Troponin I 0.05, Total Protein 6.7, Albumin 4.0, Globulin 2.7, Albumin/Globulin Ratio 1.5, Free T4 1.16, Total T3 1.14, TSH &T3 &Free T4 Intrp 1.140, PT 10.7, INR 1.02, APTT 32, CBC w Diff NO MAN DIFF REQ, RBC 4.37 L, MCV 91.8, MCH 31.0, RDW 14.0, MPV 7.6, Gran % 69.1, Lymphocytes % 19.7 L, Monocytes % 8.8, Eosinophils % 2.1, Basophils % 0.3, Absolute Granulocytes 5.5, Absolute Lymphocytes 1.6, Absolute Monocytes 0.7 H, Absolute Eosinophils 0.2, Absolute Basophils 0, PUBS MCHC 33.8 Recent Imaging Studies: Telemetry tracings were personally reviewed which show atrial fibrillation which converted to sinus rhythm/sinus bradycardia overnight Echo: CONCLUSIONS Normal left and right ventricular systolic function. No significant valvular abnormalities noted. Assessment/Plan Assessment/Plan 1. New onset atrial fibrillation with spontaneous conversion 2. Elevated troponins possibly due to demand ischemia although non-ST elevation myocardial infarction remains in the differential 3. Coronary disease by history status post bare-metal stent followed by LORETTA to the LAD in 2008 with normal LV function on stress test performed in 2014. 4. Chest discomfort, now resolved 5. Hemochromatosis by history 6. Hypertension 7. Diabetes 8. Hyperlipidemia 9. Chronic renal insufficiency The patient spontaneously converted back to sinus rhythm overnight. He is currently asymptomatic. Echocardiogram without obvious wall motion abnormalities , preserved ejection fraction. The elevated troponins may have been due to demand ischemia in the setting of new arrhythmia although non-ST elevation myocardial infarction does remain in the differential. I discussed the potential options for further investigation at length with the patient today. The patient is currently considering but likely favors a more conservative approach as opposed to proceeding directly to cardiac catheterization given the risk of contrast nephropathy in the setting of his renal insufficiency. He is going to discuss this further with his primary chief architect Dr. Ayala tomorrow but will likely plan for continued medical therapy with additional risk stratification with outpatient nuclear stress test after discharge. Would continue intravenous heparin for another 24 hours with plan to transition to novel oral anticoagulant if he decides not to pursue cardiac catheterization. Would keep him nothing by mouth after midnight in case he does decide to consider cardiac cath. Risks/benefits/alternatives of various treatment strategies discussed at length with the patient. Continue on aspirin, statin, and beta marisabel therapy. Sudheer Matt MD [facility] Continue telemetry? Yes
[2016-09-13 15:30] VITALS: BP 128/64
[2016-09-13 18:36] LABS: PTT > 120 SEC (25-37)
[2016-09-14 00:43] VITALS: BP 132/84
[2016-09-14 03:07] LABS: PTT > 120 SEC (25-37)
--- NOTE | 2016-09-14 07:36 | PN- Housestaff ---
Subjective Follow-up For: chest pain/resolved New onset A.fib, now SR Complaints: no complaints Subjective: Patient seen and examined, sitting in the chair comfortable wit no acute distress. He denies any complaint. vitals stable Review of Systems Constitutional: Reports: no symptoms. EENTM: Reports: no symptoms. Cardiovascular: Reports: no symptoms. Respiratory: Reports: no symptoms. Gastrointestinal: Reports: no symptoms. Skin: Reports: no symptoms. Objective Last 24 Hrs of Vital Signs/I&O Vital Signs Date Time Temp Pulse Resp B/P Pulse O2 O2 Flow FiO2 Ox Delivery Rate 09/14 0043 97.5 60 20 132/84 95 Room Air 09/13 1530 98.8 55 20 128/64 94 Room Air 09/13 1109 130/80 09/13 1108 130/80 Intake & Output 09/14 1600 09/14 0800 09/14 0000 Intake Total 140 930 Output Total Balance 140 930 Intake, IV 140 210 Intake, Oral 720 Physical Exam General Appearance: Alert, Oriented X3, Cooperative, No Acute Distress Skin: No Rashes, No Breakdown, No Significant Lesion HEENT: Atraumatic, PERRLA, EOMI, Mucous Membr. moist/pink Neck: Supple, No JVD Cardiovascular: Regular Rate, Normal S1, Normal S2, No Murmurs Lungs: Clear to Auscultation, Normal Air Movement Abdomen: Normal Bowel Sounds, Soft, No Tenderness Neurological: Strength at 5/5 X4 Ext, Normal Tone, Sensation Intact Extremities: No Edema, Normal Pulses Current Medications: Current Medications Sig/Helga Start time Last Medication Dose Route Stop Time Status Admin Acetaminophen 325 MG Q6P PRN 09/12 1115 AC PO Acetaminophen/ 1 TAB Q6P PRN 09/12 1115 AC Hydrocodone Bitart PO Aspirin Buffered 81 MG DAILY 09/13 1000 AC 09/13 PO 1108 Atorvastatin Calcium 20 MG 1700 09/12 1700 AC 09/13 PO 1628 Cholecalciferol 1,000 IU DAILY 09/13 1000 AC 09/13 PO 1109 Cyanocobalamin 1,000 MCG DAILY 09/13 1000 AC 09/13 PO 1109 Fish Oil 1,050 MG DAILY 09/13 1000 AC 09/13 PO 1108 Gatifloxacin 1 GTT FOUR TIMES A DAY 09/12 2100 DC 09/13 OPH 1112 Glimepiride 2 MG DAILY 04/12 1000 AC 09/13 PO 1108 Heparin Sodium 25,000 UNIT Q24H 09/12 1200 AC 09/14 (Porcine) IV 0415 Sodium Chloride 500 ML Insulin Aspart 0 TIDAC/HS 09/12 1115 AC 09/13 SC 1213 Lisinopril 10 MG DAILY 09/13 1000 AC 09/13 PO 1108 Magnesium Oxide 400 MG DAILY 09/12 1200 AC 09/13 PO 1108 Metoprolol Succinate 25 MG DAILY 09/13 1000 AC 09/13 PO 1109 Morphine Sulfate 2 MG Q4P PRN 09/12 1115 AC IV Nitroglycerin 0.4 MG Q 5 MINUTES X 3 DO.. 09/12 1345 AC SL Omeprazole 40 MG DAILY AC 09/13 0700 AC 09/14 PO 0625 Pioglitazone HCl 30 MG DAILY 09/13 1000 AC 09/13 PO 1107 Last 24 Hrs of Lab/Justin Results Last 24 Hrs of Labs/Mics: Laboratory Tests 09/14/16 0645: Anion Gap 9, Estimated GFR 55 L, BUN/Creatinine Ratio 17.7 09/14/16 0200: APTT > 120 *H 09/13/16 1705: APTT > 120 *H Assessment/Plan Assessment: 65 yo male with pmh of DM, HTN, CAD s/p LAD stent (2008), Lt. ICA stenosis s/p Lt. CEA (2010), GERD came to ED with a chief complaint of chest pain around 5:30 am while he was getting dressed for work. It is located on mid sternum/Lt. chest pain, sharpm, 7/10, radiation to epigastric are associated with epigastric discomfort/diaphoresis. In [place] ED, EKG showed new onset rapid A.fib. 1. New onset rapid A.fib now converted back on SR: Will continue to monitor pt on telemetry. Cardizem drip dc, will continue Metoprolol 25 mg po daily (home meds). Awaiting input of last trimmer regarding the need for cardiac catheterization or to continue with medical treatment. 2. Chest pain with hx of CAD s/p LAD (LORETTA in 2008): pt was on aspirin 81mg qd and palvix 75mg EOD as home medication. He was given aspirin 325mg in ED. Continue home dose metoprolol 25mg daily, lisinopril 10mg qd, lipitor 20mg qd. Will hold plavix while pt is on IV heparin per cardiology recommendation. Pain control. Troponin trending down. 3. DM: Last HbA1c 6.4 on 05/01/16. Hold oral medications. Diabetic diet, Accuchecks, novolog s/s TIDACHS. per attending glimiperide and pioglitazone is continued will hold on Janumet for now. 4. HTN/HLD: c/w home medication metoprolol 25mg daily, lisinopril 10mg qd, lipitor 20mg qd, check lipid panel in AM. 5. CKD stage 3: Likely secondary to DM/HTN. Stable. His Cr has been 1.3-1.6 with GFR < 60. 6. Lt. ICA stenosis s/p Lt. CEA and Rt. ICA 60% stenosis: stable, c/w aspirin. DVT ppx: IV heparin, full code, pain pathway Problem List: 1. New onset atrial fibrillation Pain Ratin Pain Location: - Pain Goal: Remain pain free Pain Plan: - Tomorrow's Labs & Rationales: - DVT/Prophylaxis: pharmacological Consulting Request: Consulting Specialty: Cardiology Consulting Physician: Dr. Junior Reason for Consult: New onset A.fib
[2016-09-14 08:00] VITALS: BP 120/82; BP 132/82
--- NOTE | 2016-09-14 09:40 | PN- Att Addend ---
Attending Addendum Attending Brief Note Patient remains asymptomatic on evaluation this morning General Appearance: Alert, No Acute Distress Skin: Grossly normal HEENT: PEERLA Neck: Supple, No JVD Cardiovascular: Regular Rate, Normal S1, Normal S2, No Murmurs Lungs: Clear to Auscultation, Normal Air Movement Abdomen: Soft non tender abdomen, normal bowel sounds Neurological: Normal Speech, Strength at 5/5 X4 Ext, Cranial Nerves 3-12 NL, Reflexes 2+ Extremities: No Clubbing, No Cyanosis, No Edema Vascular: Normal Pulses Assessment Patient reverted to normal sinus rhythm. Positive troponins now trending down and echocardiogram shows preserved ejection fraction. We'll defer the choice of full anticoagulation to cardiology. Likely troponin is demand. However he'll need further workup can be done as outpatient. Plan A. fib/NSTEMI management per cardiology May continue home diabetic medications and insulin sliding scale Discharge pending cardiology clearance Current Medications Sig/Helga Start time Last Medication Dose Route Stop Time Status Admin Acetaminophen 325 MG Q6P PRN 09/12 1115 AC PO Acetaminophen/ 1 TAB Q6P PRN 09/12 1115 AC Hydrocodone Bitart PO Aspirin Buffered 81 MG DAILY 09/13 1000 AC 09/13 PO 1108 Atorvastatin Calcium 20 MG 1700 09/12 1700 AC 09/13 PO 1628 Cholecalciferol 1,000 IU DAILY 09/13 1000 AC 09/13 PO 1109 Cyanocobalamin 1,000 MCG DAILY 09/13 1000 AC 09/13 PO 1109 Fish Oil 1,050 MG DAILY 09/13 1000 AC 09/13 PO 1108 Gatifloxacin 1 GTT FOUR TIMES A DAY 09/12 2100 DC 09/13 OPH 1112 Glimepiride 2 MG DAILY 09/13 1000 AC 09/13 PO 1108 Heparin Sodium 25,000 UNIT Q24H 09/12 1200 AC 09/14 (Porcine) IV 0415 Sodium Chloride 500 ML Insulin Aspart 0 TIDAC/HS 09/12 1115 AC 09/13 SC 1213 Lisinopril 10 MG DAILY 09/13 1000 AC 09/13 PO 1108 Magnesium Oxide 400 MG DAILY 09/12 1200 AC 09/13 PO 1108 Metoprolol Succinate 25 MG DAILY 09/13 1000 AC 09/13 PO 1109 Morphine Sulfate 2 MG Q4P PRN 09/12 1115 AC IV Nitroglycerin 0.4 MG Q 5 MINUTES X 3 DO.. 09/12 1345 AC SL Omeprazole 40 MG DAILY AC 09/13 0700 AC 09/14 PO 0625 Pioglitazone HCl 30 MG DAILY 09/13 1000 AC 09/13 PO 1107 Laboratory Tests 09/14 09/14 09/13 0645 0200 1705 Chemistry Sodium (137 - 145 mmol/L) 139 Potassium (3.5 - 5.1 mmol/L) 4.8 Chloride (98 - 107 mmol/L) 107 Carbon Dioxide (22 - 30 mmol/L) 23 Anion Gap (5 - 16) 9 BUN (9 - 20 mg/dL) 23 H Creatinine (0.7 - 1.2 mg/dL) 1.3 H Estimated GFR (>60 ml/min) 55 L BUN/Creatinine Ratio (7 - 25 %) 17.7 Coagulation APTT (25 - 37 SEC) > 120 *H > 120 *H Vital Signs Date Time Temp Pulse Resp B/P Pulse O2 O2 Flow FiO2 Ox Delivery Rate 09/14 0800 97.7 58 20 120/82 95 Room Air 09/14 0043 97.5 60 20 132/84 95 Room Air 09/13 1530 98.8 55 20 128/64 94 Room Air 09/13 1109 130/80 09/13 1108 130/80
--- NOTE | 2016-09-14 09:44 | PN- Cardiology ---
Subjective Subjective: Telemetry reviewed. Sinus bradycardia rates from 55-60. No cardiac events overnight Objective Vital Signs and I&Os Vital Signs Date Time Temp Pulse Resp B/P Pulse O2 O2 Flow FiO2 Ox Delivery Rate 09/14 08 97.7 58 20 120/82 95 Room Air 09/14 0043 97.5 60 20 132/84 95 Room Air 09/13 1530 98.8 55 20 128/64 94 Room Air 09/13 1109 130/80 09/13 1108 130/80 Intake & Output 09/14 1600 09/14 0800 09/14 0000 09/13 1600 09/13 0800 09/13 0000 Intake Total 140 930 225 338 488 Output Total Balance 140 930 225 338 488 Intake, IV 140 210 225 218 248 Intake, Oral 720 120 240 Patient 255 lb Weight Physical Exam: Gen. exam patient comfortable Head normocephalic atraumatic Eyes sclera anicteric conjunctiva showed no pallor extraocular muscles were normal Neck no jugular venous distention no thyroid masses no palpable nodes Chest lungs were clear bilaterally Heart regular rhythm. No definite murmurs Abdomen protuberant bowel sounds normal Extremities no clubbing cyanosis or pedal edema Neurological no gross motor or sensory deficits Current Medications: Current Medications Sig/Helga Start time Last Medication Dose Route Stop Time Status Admin Acetaminophen 325 MG Q6P PRN 09/12 1115 AC PO Acetaminophen/ 1 TAB Q6P PRN 09/12 1115 AC Hydrocodone Bitart PO Aspirin Buffered 81 MG DAILY 09/13 1000 AC 09/13 PO 1108 Atorvastatin Calcium 20 MG 1700 09/12 1700 AC 09/13 PO 1628 Cholecalciferol 1,000 IU DAILY 09/13 1000 AC 09/13 PO 1109 Cyanocobalamin 1,000 MCG DAILY 09/13 1000 AC 09/13 PO 1109 Fish Oil 1,050 MG DAILY 09/13 1000 AC 09/13 PO 1108 Gatifloxacin 1 GTT FOUR TIMES A DAY 09/12 2100 DC 09/13 OPH 1112 Glimepiride 2 MG DAILY 09/13 1000 AC 09/13 PO 1108 Heparin Sodium 25,000 UNIT Q24H 09/12 1200 AC 09/14 (Porcine) IV 0415 Sodium Chloride 500 ML Insulin Aspart 0 TIDAC/HS 09/12 1115 AC 09/13 SC 1213 Lisinopril 10 MG DAILY 09/13 1000 AC 09/13 PO 1108 Magnesium Oxide 400 MG DAILY 09/12 1200 AC 09/13 PO 1108 Metoprolol Succinate 25 MG DAILY 09/13 1000 AC 09/13 PO 1109 Morphine Sulfate 2 MG Q4P PRN 09/12 1115 AC IV Nitroglycerin 0.4 MG Q 5 MINUTES X 3 DO.. 09/12 1345 AC SL Omeprazole 40 MG DAILY AC 09/13 0700 AC 09/14 PO 0625 Pioglitazone HCl 30 MG DAILY 09/13 1000 AC 09/13 PO 1107 Results Last 48 Hrs of Labs/Mics: Laboratory Tests 09/14/16 0645: Anion Gap 9, Estimated GFR 55 L, BUN/Creatinine Ratio 17.7 09/14/16 0200: APTT > 120 *H 09/13/16 1705: APTT > 120 *H 09/13/16 0839: APTT 54 H, CBC w Diff NO MAN DIFF REQ, RBC 4.51 L, MCV 90.5, MCH 31.1 H, RDW 13.8, MPV 8.5, Gran % 61.8, Lymphocytes % 28.1, Monocytes % 7.5, Eosinophils % 2.2, Basophils % 0.4, Absolute Granulocytes 4.4, Absolute Lymphocytes 2.0, Absolute Monocytes 0.5, Absolute Eosinophils 0.2, Absolute Basophils 0, PUBS MCHC 34.3 09/13/16 0615: Anion Gap 10, Estimated GFR 47 L, BUN/Creatinine Ratio 22.0, Troponin I 0.98 *H , Triglycerides 72, Cholesterol 96, LDL Cholesterol, Calc 36 L, HDL Cholesterol 46, Cholesterol/HDL Ratio 2 09/13/16 0604: Troponin I Cancelled 09/12/162004: Troponin I 1.42 *H, APTT 79 H 09/12/16 1351: Troponin I 1.37 *H Assessment/Plan Assessment/Plan In summary this 65-year-old gentleman has the following problems . New onset atrial fibrillation with spontaneous conversion 2. Elevated troponins possibly due to demand ischemia although non-ST elevation myocardial infarction remains in the differential 3. Coronary disease by history status post bare-metal stent followed by LORETTA to the LAD in 2008 with normal LV function on stress test performed in 2014. 4. Chest discomfort, now resolved 5. Hemochromatosis by history 6. Hypertension 7. Diabetes 8. Hyperlipidemia 9. Chronic renal insufficiency X 10. Carotid disease having had left carotid endarterectomy and 60% right internal carotid artery stenosis I spent more than 45 minutes with him and his discussing the various options. Reviewing his symptoms from arrival there is a distinct possibility that his symptoms were more GI related and the atrial fibrillation was an incidental finding. He tells me that when he came into the emergency room his discomfort shifted the belly and and he was being examined his belly hurt reproducing his similar discomfort. A few days prior to his admission to the hospital he was working on an elliptical and doing strenuous work without shortness of breath or chest discomfort. Certainly there were no preceding events of morning but related to a cardiac event. He also tells me that he has had left carotid endarterectomy and has a residual 60% stenosis on the right carotid artery. He is being followed by vascular surgery. However upon recent eye exam there was a concern that he might have had a plaque on the right eye. This could also be related to occult cardio emboli from atrial fibrillation. Review of his troponin enzyme curves and his electrocardiogram show flat troponin enzyme curve and at troponin and electrocardiogram that this not distinctly suggest any ischemic ST-T changes. Precise his elevated lipid left ventricular function was normal. He does have risk factors for quite disease and I cannot exclude a non-ST RI but my suspicion is this is supply demand mismatch. Again the issue of cardiac catheterization was discussed an option was presented on clearly to him and his . He would like to be conservative and continue medical therapy and a stress test to evaluate for coronary disease shortly. Regarding his atrial fibrillation I would like to start him on dronederone 400 mg by mouth twice a day with meals. We can also start him on a novel anticoagulants, Xarelto 15 mg a day,(donederone plus slightly decreased GFR) the first dose at lunch, stop heparin two hours later, and subsequent doses with supper. Would ambulate him today and perhaps consider discharge tomorrow. Would stop fish oil capsules, and only give aspirin 81 mg with novel anticoagulants His spent more than 45 minutes with him and his discussing the above strategy. Nuclear stress test can be arranged in the office next week. He was told to stay home from work for at least 2 weeks Continue telemetry? Yes
--- NOTE | 2016-09-14 10:43 | RADIOLOGY REPORT ---
EXAMINATION: XR PORTABLE CHEST CLINICAL INFORMATION: 65-year-old male presented with new onset chest pain. Atrial fibrillation. COMPARISON: 09/07/2014. TECHNIQUE: Portable AP view of the chest was obtained. FINDINGS: Both lung mendoza are symmetrically expanded and are clear. The cardiac mediastinal silhouette is within normal limits. There is no pleural effusion present. The visualized upper abdomen is unremarkable. No significant change since prior study dated 09/07/2014. IMPRESSION: No acute cardiopulmonary disease.
[2016-09-14] MEDS ORDERED: MULTAQ400 M1 PO (10:52)
[2016-09-14] MEDS ORDERED: XARELTO15 M1 PO (10:52)
--- NOTE | 2016-09-14 10:56 | Patient Discharge Instructions ---
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 You need a stress test to be done as an outpatient. -Take your medication as prescribed Diet Continue normal diet: Yes Activity Full Activity/No Limits: Yes (As tolerated) Acute Coronary Syndrome Inclusion Criteria At DC or during hospital stay patient has or had the following: ACS DIAGNOSIS No Discharge Core Measures Meds if any: Prescribed or Continued at Discharge Meds if any: NOT Prescribed or Continued at Discharge Congestive Heart Failure Inclusion Criteria At DC or during hospital stay patient has or had the following: CHF DIAGNOSIS No Discharge Core Measures Meds if any: Prescribed or Continued at Discharge Meds if any: NOT Prescribed or Continued at Discharge Cerebrovascular accident Inclusion Criteria At DC or during hospital stay patient has or had the following: CVA/TIA Diagnosis No Discharge Core Measures Meds if any: Prescribed or Continued at Discharge Meds if any: NOT Prescribed or Continued at Discharge Venous thromboembolism Inclusion Criteria VTE Diagnosis No VTE Type NONE VTE Confirmed by (Test) NONE Discharge Core Measures - Per Current guidelines, there needs to be overlap - treatment for the first 5 days of Warfarin therapy. - If discharged on Warfarin prior to 5 days of - overlap therapy, the patient will need to be - assessed for post discharge needs including - *Post discharge parental anticoagulation - *Warfarin and/or parental anticoagulation education - *Follow up date to check INR post discharge At least 5 days overlap therapy as Inpatient No Meds if any: Prescribed or Continued at Discharge Note: Overlap Therapy is Warfarin and Anticoagulant Meds if any: NOT Prescribed or Continued at Discharge
[2016-09-14 15:30] VITALS: BP 138/80
[2016-09-15 01:20] VITALS: BP 110/60
[2016-09-15 08:00] VITALS: BP 150/82
[2016-09-15 08:21] VITALS: BP 150/82
--- NOTE | 2016-09-15 08:44 | PN- Housestaff ---
Subjective Follow-up For: New onset A.fib Chest pain with demand ischemia Complaints: no complaints Subjective: Patient seen and examined, setting in the chair comfortable with no acute distress. He remained stable over night. No events Vitals is stable Review of Systems Constitutional: Reports: no symptoms. EENTM: Reports: no symptoms. Cardiovascular: Reports: no symptoms. Respiratory: Reports: no symptoms. Gastrointestinal: Reports: no symptoms. Genitourinary: Reports: no symptoms. Musculoskeletal: Reports: no symptoms. Skin: Reports: no symptoms. Objective Last 24 Hrs of Vital Signs/I&O Vital Signs Date Time Temp Pulse Resp B/P Pulse O2 O2 Flow FiO2 Ox Delivery Rate 09/15 08 60 150/82 09/15 0821 60 150/82 09/15 0821 60 150/82 09/15 0120 98.7 57 20 110/60 97 Room Air 09/14 2109 60 09/14 1530 98.2 59 20 138/80 97 Room Air 09/14 1123 56 120/82 09/14 0950 56 120/82 09/14 0949 56 120/82 Intake & Output 09/15 1600 09/15 0800 09/15 0000 Intake Total 130 490 Output Total Balance 130 490 Intake, IV 10 10 Intake, Oral 120 480 Physical Exam General Appearance: Alert, Oriented X3, Cooperative, No Acute Distress Skin: No Rashes, No Breakdown, No Significant Lesion HEENT: Atraumatic, PERRLA, EOMI, Mucous Membr. moist/pink Neck: Supple, No JVD Lymphatic: Axillary nl, Cervical nl Cardiovascular: Normal S1, Normal S2, No Murmurs Lungs: Clear to Auscultation, Normal Air Movement Abdomen: Normal Bowel Sounds, Soft, No Tenderness Extremities: No Edema, Normal Pulses Current Medications: Current Medications Sig/Helga Start time Last Medication Dose Route Stop Time Status Admin Acetaminophen 325 MG Q6P PRN 09/12 1115 AC PO Acetaminophen/ 1 TAB Q6P PRN 09/12 1115 AC Hydrocodone Bitart PO Aspirin Buffered 81 MG DAILY 09/13 1000 AC 09/15 PO 0821 Atorvastatin Calcium 20 MG 1700 09/12 1700 AC 09/14 PO 1544 Cholecalciferol 1,000 IU DAILY 09/13 1000 AC 09/15 PO 0820 Cyanocobalamin 1,000 MCG DAILY 09/13 1000 AC 09/15 PO 0820 Dronedarone 400 MG BID 09/14 1002 AC 09/15 PO 0821 Fish Oil 1,050 MG DAILY 09/13 1000 DC 09/13 PO 1108 Glimepiride 2 MG DAILY 09/13 1000 AC 09/15 PO 0821 Heparin Sodium 25,000 UNIT Q24H 09/12 1200 DC 09/14 (Porcine) IV 09/14 1400 0415 Sodium Chloride 500 ML Insulin Aspart 0 TIDAC/HS 09/12 1115 AC 09/14 SC 1137 Lisinopril 10 MG DAILY 09/13 1000 AC 09/15 PO 0821 Magnesium Oxide 400 MG DAILY 09/12 1200 AC 09/15 PO 0821 Metoprolol Succinate 25 MG DAILY 09/13 1000 AC 09/15 PO 0821 Morphine Sulfate 2 MG Q4P PRN 09/12 1115 AC IV Nitroglycerin 0.4 MG Q 5 MINUTES X 3 DO.. 09/12 1345 AC SL Omeprazole 40 MG DAILY AC 09/13 0700 AC 09/15 PO 0635 Pioglitazone HCl 30 MG DAILY 09/13 1000 AC 09/15 PO 0821 Rivaroxaban 15 MG 1800 09/15 1800 AC PO Rivaroxaban 15 MG 1700 09/15 1700 CAN PO Rivaroxaban 15 MG ONCE ONE 09/14 1200 DC 09/14 PO 09/14 1201 1246 Last 24 Hrs of Lab/Justin Results Last 24 Hrs of Labs/Mics: Laboratory Tests 09/15/16 0650: Anion Gap 8, Estimated GFR 51 L, BUN/Creatinine Ratio 15.0 Assessment/Plan Assessment: 65 yo male with pmh of DM, HTN, CAD s/p LAD stent (2008), Lt. ICA stenosis s/p Lt. CEA (2010), GERD came to ED with a chief complaint of chest pain around 5:30 am while he was getting dressed for work. It is located on mid sternum/Lt. chest pain, sharpm, 7/10, radiation to epigastric are associated with epigastric discomfort/diaphoresis. In [facility] ED, EKG showed new onset rapid A.fib. 1. New onset rapid A.fib now converted back on SR: Patient seen by fast food cashier yesterday, who recommend to start patient on dronederone 400 mg by mouth twice a day with meals, also to start him on a novel anticoagulants, Xarelto 15 mg a day. Will continue Metoprolol 25 mg po daily (home meds). 2. Chest pain with hx of CAD s/p LAD (LORETTA in 2008): pt was on aspirin 81mg qd and palvix 75mg EOD as home medication. He was given aspirin 325mg in ED. Continue home dose metoprolol 25mg daily, lisinopril 10mg qd, lipitor 20mg qd. Currently patient on Xarelto. 3. DM: Last HbA1c 6.4 on 05/01/16. Hold oral medications. Diabetic diet, Accuchecks, novolog s/s TIDACHS. per attending glimiperide and pioglitazone is continued will hold on Janumet for now. 4. HTN/HLD: c/w home medication metoprolol 25mg daily, lisinopril 10mg qd, lipitor 20mg qd. 5. CKD stage 3: Likely secondary to DM/HTN. Stable. His Cr has been 1.3-1.6 with GFR < 60. 6. Lt. ICA stenosis s/p Lt. CEA and Rt. ICA 60% stenosis: stable, c/w aspirin. DVT ppx: Xarelto, full code, pain pathway Problem List: 1. New onset atrial fibrillation Pain Ratin Pain Location: - Pain Goal: Remain pain free Pain Plan: - Tomorrow's Labs & Rationales: - DVT/Prophylaxis: pharmacological Consulting Request: Consulting Specialty: Cardiology Consulting Physician: Dr. Junior Reason for Consult: New onset A.fib
--- NOTE | 2016-09-15 09:34 | PN- Att Addend ---
Attending Addendum Attending Brief Note Patient remains asymptomatic on evaluation this morning General Appearance: Alert, No Acute Distress Skin: Grossly normal HEENT: PEERLA Neck: Supple, No JVD Cardiovascular: Regular Rate, Normal S1, Normal S2, No Murmurs Lungs: Clear to Auscultation, Normal Air Movement Abdomen: Soft non tender abdomen, normal bowel sounds Neurological: Normal Speech, Strength at 5/5 X4 Ext, Cranial Nerves 3-12 NL, Reflexes 2+ Extremities: No Clubbing, No Cyanosis, No Edema Vascular: Normal Pulses Assessment Patient reverted to normal sinus rhythm. Positive troponins now trending down and echocardiogram shows preserved ejection fraction. We'll defer the choice of full anticoagulation to cardiology. Likely troponin is demand. However he'll need further workup can be done as outpatient. Plan A. fib/NSTEMI management per cardiology May continue home diabetic medications and insulin sliding scale Discharge pending cardiology clearance Current Medications Sig/Helga Start time Last Medication Dose Route Stop Time Status Admin Acetaminophen 325 MG Q6P PRN 09/12 1115 AC PO Acetaminophen/ 1 TAB Q6P PRN 09/12 1115 AC Hydrocodone Bitart PO Aspirin Buffered 81 MG DAILY 09/13 1000 AC 09/15 PO 0821 Atorvastatin Calcium 20 MG 1700 09/12 1700 AC 09/14 PO 1544 Cholecalciferol 1,000 IU DAILY 09/13 1000 AC 09/15 PO 0820 Cyanocobalamin 1,000 MCG DAILY 09/13 1000 AC 09/15 PO 0820 Dronedarone 400 MG BID 09/14 1002 AC 09/15 PO 0821 Fish Oil 1,050 MG DAILY 09/13 1000 DC 09/13 PO 1108 Glimepiride 2 MG DAILY 09/13 1000 AC 09/15 PO 0821 Heparin Sodium 25,000 UNIT Q24H 09/12 1200 DC 09/14 (Porcine) IV 09/14 1400 0415 Sodium Chloride 500 ML Insulin Aspart 0 TIDAC/HS 09/12 1115 AC 09/14 SC 1137 Lisinopril 10 MG DAILY 09/13 1000 AC 09/15 PO 0821 Magnesium Oxide 400 MG DAILY 09/12 1200 AC 09/15 PO 0821 Metoprolol Succinate 25 MG DAILY 09/13 1000 AC 09/15 PO 0821 Morphine Sulfate 2 MG Q4P PRN 09/12 1115 AC IV Nitroglycerin 0.4 MG Q 5 MINUTES X 3 DO.. 09/12 1345 AC SL Omeprazole 40 MG DAILY AC 09/13 0700 AC 09/15 PO 0635 Pioglitazone HCl 30 MG DAILY 09/13 1000 AC 09/15 PO 0821 Rivaroxaban 15 MG 1800 09/15 1800 AC PO Rivaroxaban 15 MG 1700 09/15 1700 CAN PO Rivaroxaban 15 MG ONCE ONE 09/14 1200 DC 09/14 PO 09/14 1201 1246 Laboratory Tests 09/15 0650 Chemistry Sodium (137 - 145 mmol/L) 138 Potassium (3.5 - 5.1 mmol/L) 4.9 Chloride (98 - 107 mmol/L) 104 Carbon Dioxide (22 - 30 mmol/L) 26 Anion Gap (5 - 16) 8 BUN (9 - 20 mg/dL) 21 H Creatinine (0.7 - 1.2 mg/dL) 1.4 H Estimated GFR (>60 ml/min) 51 L BUN/Creatinine Ratio (7 - 25 %) 15.0 Vital Signs Date Time Temp Pulse Resp B/P Pulse O2 O2 Flow FiO2 Ox Delivery Rate 09/15 08 60 150/82 09/15 0821 60 150/82 09/15 0821 60 150/82 09/15 0800 98.3 61 20 150/82 95 Room Air 09/15 0120 98.7 57 20 110/60 97 Room Air 09/14 2109 60 09/14 1530 98.2 59 20 138/80 97 Room Air 09/14 1123 56 120/82 09/14 0950 56 120/82 09/14 0949 56 120/82
--- NOTE | 2016-09-15 11:54 | PN- Cardiology ---
Subjective Subjective: Patient feels well but does note he has not had a bowel movement since Sunday. No chest pain, dyspnea, or palpitations. No abdominal pain. Objective Vital Signs and I&Os Vital Signs Date Time Temp Pulse Resp B/P Pulse O2 O2 Flow FiO2 Ox Delivery Rate 09/15 0821 60 150/82 09/15 0821 60 150/82 09/15 0821 60 150/82 09/15 0800 98.3 61 20 150/82 95 Room Air 09/15 0120 98.7 57 20 110/60 97 Room Air 09/14 2109 60 09/14 1530 98.2 59 20 138/80 97 Room Air Intake & Output 09/15 1600 09/15 0800 09/15 0000 09/14 1600 09/14 0800 09/14 0000 Intake Total 130 490 140 930 Output Total Balance 130 490 140 930 Intake, IV 10 10 140 210 Intake, Oral 120 480 720 Physical Exam: General: no apparent distress. Alert. Eyes: No obvious scleral icterus. HEENT: No jugular venous distention or abnormal jugular venous pulsations. Cardiovascular: Normal intensity S1/S2. Regular. Respiratory: No rales or rhonchi Abdomen: no guarding or rebound tenderness. Musculoskeletal: No clubbing or cyanosis noted Skin: Warm Current Medications: Current Medications Sig/Helga Start time Last Medication Dose Route Stop Time Status Admin Acetaminophen 325 MG Q6P PRN 09/12 1115 AC PO Acetaminophen/ 1 TAB Q6P PRN 09/12 1115 AC Hydrocodone Bitart PO Aspirin Buffered 81 MG DAILY 09/13 1000 AC 09/15 PO 0821 Atorvastatin Calcium 20 MG 1700 09/12 1700 AC 09/14 PO 1544 Cholecalciferol 1,000 IU DAILY 09/13 1000 AC 09/15 PO 0820 Cyanocobalamin 1,000 MCG DAILY 09/13 1000 AC 09/15 PO 0820 Docusate Sodium 100 MG DAILY NEEDED PRN 09/15 1130 AC PO Dronedarone 400 MG BID 09/14 1002 AC 09/15 PO 0821 Fish Oil 1,050 MG DAILY 09/13 1000 DC 09/13 PO 1108 Glimepiride 2 MG DAILY 09/13 1000 AC 09/15 PO 0821 Heparin Sodium 25,000 UNIT Q24H 09/12 1200 DC 09/14 (Porcine) IV 09/14 1400 0415 Sodium Chloride 500 ML Insulin Aspart 0 TIDAC/HS 09/12 1115 AC 09/14 SC 1137 Lisinopril 10 MG DAILY 09/13 1000 AC 09/15 PO 0821 Magnesium Oxide 400 MG DAILY 09/12 1200 AC 09/15 PO 0821 Metoprolol Succinate 25 MG DAILY 09/13 1000 AC 09/15 PO 0821 Morphine Sulfate 2 MG Q4P PRN 09/12 1115 AC IV Nitroglycerin 0.4 MG Q 5 MINUTES X 3 DO.. 09/12 1345 AC SL Omeprazole 40 MG DAILY AC 09/13 0700 AC 09/15 PO 0635 Pioglitazone HCl 30 MG DAILY 09/13 1000 AC 09/15 PO 0821 Polyethylene Glycol 17 GM DAILY 09/15 1121 AC PO Rivaroxaban 15 MG 1800 09/15 1800 AC PO Rivaroxaban 15 MG ONCE ONE 09/14 1200 DC 09/14 PO 09/14 1201 1246 Senna/Docusate Sodium 1 TAB BID PRN 09/15 1130 AC PO Results Last 48 Hrs of Labs/Mics: Laboratory Tests 09/15/16 0650: Anion Gap 8, Estimated GFR 51 L, BUN/Creatinine Ratio 15.0 09/14/16 0645: Anion Gap 9, Estimated GFR 55 L, BUN/Creatinine Ratio 17.7 09/14/16 0200: APTT > 120 *H 09/13/16 1705: APTT > 120 *H Recent Imaging Studies: Telemetry tracings personally reviewed shows SR, 5 beat wide complex run Assessment/Plan Assessment/Plan 1. New onset atrial fibrillation with spontaneous conversion 2. Elevated troponins possibly due to demand ischemia although non-ST elevation myocardial infarction remains in the differential 3. Coronary disease by history status post bare-metal stent followed by LORETTA to the LAD in 2008 with normal LV function on stress test performed in 2014. 4. Chest discomfort, now resolved 5. Hemochromatosis by history 6. Hypertension 7. Diabetes 8. Hyperlipidemia 9. Chronic renal insufficiency Cardiac status remains stable. Patient with no complaints today other than he has not had a bowel movement since Sunday. Telemetry shows no recurrence of atrial arrhythmia and he is now on Multaq and Xarelto. As per his conversation with his primary farm equipment mechanic apprentice Dr. Mae yesterday he is going to be continued on medical therapy for known coronary artery disease with plan for outpatient nuclear stress test after discharge. He should follow-up in office within one week of discharge. Sudheer Matt MD FAC Continue telemetry? No
--- NOTE | 2016-09-15 15:22 | Discharge Summary ---
See Addendum Visit Information Visit Dates Admission Date: 09/12/16 Discharge Date: 09/15/16 Hospital Course Course Attending Physician: EDMOND TERRY MD Primary Care Physician: BART CARRANZA MD Consulting Request: Consulting Specialty: Cardiology Consulting Physician: Dr. Junior Reason for Consult: New onset A.fib Hospital Course: Patient is a 65 yo male with a history of coronary artery disease S/P BMS of LAD followed by LORETTA also to the LAD in 2008, hypertension, diabetes, hyperlipidemia, hemochromatosis, who presents with chest pain. At ED he found to have a new onset rapid A.fib: TSH/fT4 normal. Initial troponin was negative, second set was positive 0.98 and it's thought to be demand ischemia, EKG nonspecific. After discussion with Dr. Junior ( Investment Specialist), patient started on full IV heparin for anticoagulation. Guiac was negative. started on IV cardizem and po metoprolol for rate control. Patient was seen after by (Investment Specialist) who recommend to stop IV heparin and start him on dronederone 400 mg by mouth twice a day with meals. We also start him on a novel anticoagulants, Xarelto 15 mg a day,(donederone plus slightly decreased GFR), we stopped fish oil, and only give aspirin 81 mg with novel anticoagulants During hospitalization he was managed for this other condition: #. DM: Last HbA1c 6.4 on 05/01/16. We held oral medications. Diabetic diet, Accuchecks, novolog s/s TIDACHS. #. HTN/HLD: c/w home medication metoprolol 25mg daily, lisinopril 10mg qd, lipitor 20mg qd #. CKD stage 3: Likely secondary to DM/HTN. Stable. His Cr has been 1.3-1.6 with GFR < 60. #. Lt. ICA stenosis s/p Lt. CEA and Rt. ICA 60% stenosis: stable, c/w aspirin. full code Complications: Non Allergies: Coded Allergies: No Known Allergies (09/01/16) Disposition Summary Disposition Principal Diagnosis: 1. New onset atrial fibrillation with spontaneous conversion 2. Elevated troponins possibly due to demand ischemia although non-ST elevation myocardial infarction remains in the differential 3. Coronary disease by history status post bare-metal stent followed by LORETTA to the LAD in 2008 with normal LV function on stress test performed in 2014. 4. Chest discomfort, now resolved 5. Hemochromatosis by history 6. Hypertension 7. Diabetes 8. Hyperlipidemia 9. Chronic renal insufficiency Additional Diagnosis: As above Discharge Disposition: home or self care Discharge Instructions General Discharge Information Code Status: Full Code Patient's Diet: Consistent CHO3, with sodium restriction Patient's Activity: As tolerated Follow-Up Instructions/Appts: -Follow up in week after discharge with your PCP -Follow up with your loss prevention auditor in 1 week after discharge. You need a stress test to be done as an outpatient. -Take your medication as prescribed Medications at Discharge Discharge Medications: Stop taking the following medications: Clopidogrel Bisulfate (Plavix) 75 MG TABLET ORAL Every other day Fish Oil/Borage/Flax/Om3,6,9#1 ([place] 3-6-9 1,200 MG Softgel) 1,200 MG CAPSULE ORAL DAILY Gatifloxacin (Zymaxid) 0.5 % DROPS Right Eye 4 TIMES A DAY Qty = 3 Continue taking these medications: Sitagliptin Phos/Metformin HCl (Janumet 50-1,000 MG Tablet) 50 MG-1,000 MG TABLET 1 Tablet ORAL TWICE DAILY Instructions: Reason to Stop at ADM: novolog s/s Comments: NOT GIVEN AT HOSPITAL Aspirin (Ecotrin*) 81 MG TABLET.DR 1 Tablet ORAL DAILY Comments: Last Taken: 09/15/16 Time: 8 AM Metoprolol Succ XL (Toprol XL) 25 MG TAB 1 Tablet ORAL DAILY Comments: Last Taken: Time: 8 AM Lisinopril (Lisinopril) 10 MG TABLET 1 Tablet ORAL DAILY Comments: Last Taken: 09/15/16 Time: 8 AM Glimepiride (Glimepiride) 2 MG TABLET 1 Tablet ORAL DAILY Instructions: Reason to Stop at ADM: novolog s/s Comments: Last Taken: 09/15/16 Time: 8 AM Simvastatin (Simvastatin*) 40 MG TABLET 1 Tablet ORAL Every night Comments: Last Taken: ATORVASTATIN 20 MG 09/14/16 Time: 4 PM Cyanocobalamin (Vitamin B-12) (B-12) 1,000 MCG TABLET 1,000 Microgram ORAL DAILY Comments: Last Taken: 09/05/16 Time: 8 AM Cholecalciferol (Vitamin D3) (Vitamin D) 2,000 UNIT TABLET 2,000 Units ORAL DAILY Comments: Last Taken: 09/15/16 Time: 8 AM Magnesium Oxide (Magnesium) 500 MG CAPSULE 500 Milligram ORAL DAILY Comments: Last Taken: 400 MG CAPSULE 09/15/16 Time: 8 AM Pioglitazone HCl (Actos) 30 MG TABLET 1 Tablet ORAL DAILY Instructions: Reason to Stop at ADM: novolog s/s Comments: Last Taken: 09/15/16 Time: 8 AM Ubidecarenone (Coq-10) 100 MG CAPSULE 200 Milligram ORAL DAILY Instructions: Reason to Stop at ADM: not needed in hospital Comments: Last Taken: NOT GIVEN AT HOSPITAL Time: Difluprednate (Durezol) 0.05 % DROPS 1 Drop Right Eye 4 TIMES A DAY Qty = 5 Comments: Last Taken: 09/15/16 Time: 10 AM Start taking the following new medications: Rivaroxaban (Xarelto) 15 MG TABLET 15 Milligram ORAL 1800 Qty = 30 No Refills Comments: Last Taken: Time: 1245 PM Dronedarone HCl (Multaq) 400 MG TABLET 400 Milligram ORAL TWICE DAILY Qty = 30 No Refills Comments: Last Taken: Time: 8 AM Copies To: HANNA DEJESUS,CYNTHIA Cerda; HARRISON DEJESUS,EDMOND
== END 2016-09-15 13:45 | DRG 281 ==
LOC: ENRESERVDT → ENRESERVTM → ERH 07:09 → 1NO 09:28 → ERHI 09:28 → ENPENDDIS 09:28 → 1NO 16:22
PROVIDERS: Emergency Medicine; Internal Medicine; ADMIT Internal Medicine
DX: I21.4 Non-ST elevation (NSTEMI) myocardial infarction (principal); I50.32 Chronic diastolic (congestive) heart failure; I13.0 Hypertensive heart and chronic kidney disease with heart failure and stage 1 through stage 4 chronic kidney disease, or unspecified chronic kidney disease; E11.22 Type 2 diabetes mellitus with diabetic chronic kidney disease; I65.21 Occlusion and stenosis of right carotid artery; I48.91 Unspecified atrial fibrillation; N18.3 Chronic kidney disease, stage 3 (moderate); F17.290 Nicotine dependence, other tobacco product, uncomplicated; I25.10 Atherosclerotic heart disease of native coronary artery without angina pectoris; Z95.5 Presence of coronary angioplasty implant and graft; E83.119 Hemochromatosis, unspecified; K21.9 Gastro-esophageal reflux disease without esophagitis; E78.5 Hyperlipidemia, unspecified; F17.200 Nicotine dependence, unspecified, uncomplicated
CPT/HCPCS: 1NP; 36415; 82436; 93005; 93010; 93306; 96374; 96376; 99291; J1644; J1650; J3490

== ENCOUNTER 2017-07-25 11:23 | Emergency (ER) | payer OTHER, MEDICARE ==
[~2017-07-25] VITALS: Ht 185.4 cm; Wt 113.9 kg
[~2017-07-25 11:23] MED LIST changes: +ACTOS30 M1 PO; +B-121000 MC3 PO; +COQ-10100 MG PO; +DUREZOL5 ML OD; +MAGNESIUM500 M2 PO; +MULTAQ400 M1 PO; +OMEGA 3-6-9 11200 MG PO; +VITAMIN D2000 UNI1 PO; +XARELTO15 M1 PO; +ZYMAXID2.5 ML OD
--- NOTE | 2017-07-25 11:27 | ED SYNCOPE COMPLAINT ---
History of Present Illness General Chief Complaint: Dyspnea (COPD, CHF, Other) Stated Complaint: SOB, DIAPHORESIS WHILE AT CARDIAC REHAB Source: patient, family, old records, EMS Exam Limitations: no limitations Vital Signs & Intake/Output Vital Signs & Intake/Output Vital Signs Date Time Temp Pulse Resp B/P B/P Pulse O2 O2 Flow FiO2 Mean Ox Delivery Rate 07/25 1618 97.0 60 18 145/67 96 Room Air 07/25 1505 97.6 51 18 170/82 98 Room Air 07/25 1333 97.6 68 18 134/71 98 Room Air 07/25 1207 64 143/95 07/25 1150 Room Air 07/25 1129 73 18 143/956 97 Room Air Allergies Coded Allergies: No Known Allergies (09/01/16) Reconcile Medications Aspirin (Ecotrin*) 81 MG TABLET.DR 1 TAB PO DAILY PROPH (Reported) Cholecalciferol (Vitamin D3) (Vitamin D) 2,000 UNIT TABLET 2,000 UNITS PO DAILY VITAMIN (Reported) Cyanocobalamin (Vitamin B-12) (B-12) 1,000 MCG TABLET 1,000 MCG PO DAILY VITAMIN (Reported) Ferrous Sulfate 325 MG (65 MG IRON) TABLET 1 TAB PO Th SUPPLEMENT (Reported) Glimepiride 2 MG TABLET 1 TAB PO DAILY DM II (Reported) Reason to Stop at ADM: novolog s/s Magnesium Oxide (Magnesium) 500 MG CAPSULE 500 MG PO DAILY VITAMIN (Reported) Metoprolol Tartrate 25 MG TABLET 1 TAB PO DAILY HEART (Reported) Metoprolol Tartrate 25 MG TABLET 0.5 TAB PO QPM HEART (Reported) Pioglitazone HCl (Actos) 30 MG TABLET 1 TAB PO DAILY DIABETES (Reported) Reason to Stop at ADM: novolog s/s Pravastatin Sodium 80 MG TABLET 1 TAB PO DAILY CHOLESTEROL (Reported) Rivaroxaban (Xarelto) 15 MG TABLET 15 MG PO 1800 Atrial Fibrillation Sitagliptin Phos/Metformin HCl (Janumet 50-1,000 MG Tablet) 50 MG-1,000 MG TABLET 1 TAB PO BID DM II (Reported) Reason to Stop at ADM: novolog s/s Ubidecarenone (Coq-10) 100 MG CAPSULE 200 MG PO DAILY SUPPLEMENT (Reported) Reason to Stop at ADM: not needed in hospital Triage Nurses Notes Reviewed? yes HPI: Patient was over at cardiac rehabilitation when he felt very weak, tired and short of breath. Patient was found to be tachycardic in the 140s. Patient denies any chest pain or palpitations. Patient then felt better and his heart rate was down into the 70s. Patient to take his medications this morning. Patient states that over the past few days he has had a productive cough with clear sputum. No fevers or chills. No anorexia. Past History Medical History Any Pertinent Medical History? see below for history EENT: NONE Cardiovascular: CAD, hypertension, hyperlipidemia Respiratory: NONE Gastrointestinal: NONE Renal: NONE Musculoskeletal: NONE Psychiatric: NONE Endocrine: diabetes Blood Disorders: NONE Cancer(s): NONE AUCTION ASSISTANT/Reproductive: NONE History of MRSA: No History of VRE: No History of CDIFF: No Influenza Vaccine: 03/04/16 Surgical History Surgical History: non-contributory Psychosocial History Who do you live with Spouse Services at Home None What is your primary language Irish Tobacco Use: Quit >30 days ago ETOH Use: denies use Illicit Drug Use: denies illicit drug use Family History Family History, If Any: MOTHER (Mother had CAD at age 78). FATHER (Prostate cancer). Relation not specified for: FH: coronary artery disease FH: prostate cancer Hx Contributory? No Review of Systems Review of Systems Constitutional: Reports: see HPI, weakness. EENTM: Reports: no symptoms. Respiratory: Reports: see HPI, cough. Cardiovascular: Reports: no symptoms. GI: Reports: no symptoms. Genitourinary: Reports: no symptoms. Musculoskeletal: Reports: no symptoms. Skin: Reports: no symptoms. Neurological/Psychological: Reports: no symptoms. All Other Systems: Reviewed and Negative Physical Exam Physical Exam General Appearance: well developed/nourished, alert, awake, moderate distress Head: atraumatic, normal appearance Eyes: Bilateral: PERRL, EOMI. Ears, Nose, Throat: normal pharynx, normal ENT inspection, hearing grossly normal Neck: normal inspection, supple, full range of motion Respiratory: normal breath sounds, chest non-tender, no respiratory distress, lungs clear Cardiovascular: regular rate/rhythm, normal peripheral pulses Back: normal inspection, normal range of motion Extremities: normal inspection, normal capillary refill, pedal edema Psychiatric: awake, alert, oriented x 3 Cranial Nerves: normal hearing, normal speech, PERRL Motor/Sensory: no motor/sensory deficits Core Measures ACS in differential dx? Yes CVA/TIA Diagnosis: No Sepsis Present: No Sepsis Focused Exam Completed? No Progress Differential Diagnosis: AMI, orthostatic syncope, sick sinus syndrome, vasodepressor syncope Plan of Care: Orders Procedure Date/time Status TROPONIN LEVEL 07/25 1433 Complete EKG 07/25 1433 Active MISTAKE 07/25 1126 Active Telemetry/Assembler Gold Frame 07/25 112 Active TROPONIN LEVEL 07/25 1126 Complete COMPREHENSIVE METABOLIC PANEL 07/25 112 Complete CBC WITHOUT DIFFERENTIAL 07/25 112 Complete EKG 07/25 1126 Active Laboratory Tests 07/25/17 1504: Troponin I < 0.01 07/25/17 1148: Anion Gap 11, Estimated GFR 51 L, BUN/Creatinine Ratio 15.7, Glucose 176 H, Calcium 9.4, Total Bilirubin 0.5, AST 23, ALT 23, Alkaline Phosphatase 63, Troponin I < 0.01, Total Protein 6.8, Albumin 4.0, Globulin 2.8, Albumin/ Globulin Ratio 1.4, CBC w Diff NO MAN DIFF REQ, RBC 4.68 L, MCV 92.9, MCH 31.4 H, MCHC 33.8, RDW 13.3, MPV 8.0, Gran % 52.9, Lymphocytes % 27.5, Monocytes % 16.0 H, Eosinophils % 3.1, Basophils % 0.5, Absolute Granulocytes 3.0, Absolute Lymphocytes 1.5, Absolute Monocytes 0.9 H, Absolute Eosinophils 0.2, Absolute Basophils 0 Diagnostic Imaging: Viewed by Me: Radiology Read. Discussed w/RAD: Radiology Read. Pre-Hospital EKG: STACH AT 140 ???A FLUTTER 2:1 Initial ED EKG: SR AT 68. NSSTT CHANGES, SIMILAR TO PRIOR EKG Prior EKG: unchanged Repeat EKG: unchanged Rhythm Strip: normal sinus rhythm Comments: D/W DR. HERNANDEZ: PT REMAINS IN SR. WILL REPEAT TROP AT 3 HOURS. LONG HE REMAINS IN SR, WILL DISCHARGE AND HE WILL FOLLOW UP TOMORROW. PT AND HAVE BEEN UPDATED ON LABS, CXR AND CARDIOLOGY INPUT. QUESTIONS HAVE BEEN ANSWERED. Departure Departure Disposition: HOME OR SELF CARE Condition: Stable Clinical Impression Primary Impression: Palpitations Referrals: Ken DEJESUS,Haile Tom MD,Bertram Smith (PCP/Family) Additional Instructions: FOLLOW UP WITH DR. FERREIRA TOMORROW RETURN IF SYMPTOMS WORSEN OR FOR ANY CONCERNS Departure Forms: Customer Survey General Discharge Information
[2017-07-25] MEDS ORDERED: PRAVASTATIN SOD80 M2 PO (11:55)
[2017-07-25] MEDS ORDERED: METOPROLOL TART25 M1 PO ×2 (11:56)
[2017-07-25] MEDS ORDERED: FERROUS SULFAT325 M3 PO (11:58)
[2017-07-25 12:00] LABS: ABSOLUTE BASOPHIL COUNT 0 /CUMM (0.0-0.2); ABSOLUTE EOSINOPHIL COUNT 0.2 /CUMM (0.0-0.7); ABSOLUTE LYMPH COUNT 1.5 /CUMM (1.2-3.4); ABSOLUTE MONOCYTE COUNT 0.9 /CUMM (0.10-0.60); BASOPHIL % 0.5 % (0.0-2.0); EOSINOPHIL % 3.1 % (0-5); GRANULOCYTE % 52.9 % (42.2-75.2); HEMATOCRIT 43.5 % (42-52); MEAN CORPUSCULAR HGB 31.4 PG (27.0-31.0); MEAN CORPUSCULAR HGB CONC 33.8 G/DL (33.0-37.0); MEAN CORPUSCULAR VOLUME 92.9 FL (80.0-94.0); PLATELET COUNT 185 /CUMM (130-400); RBC DISTRIBUTION WIDTH 13.3 % (11.5-14.5); RED BLOOD CELL CT 4.68 /CUMM (4.70-6.10); WHITE BLOOD CELL COUNT 5.6 /CUMM (4.8-10.8)
--- NOTE | 2017-07-25 13:10 | RADIOLOGY REPORT ---
EXAMINATION: XR CHEST CLINICAL INFORMATION: Productive cough. Suspect pneumonia. COMPARISON: Chest radiograph 09/14/2016. TECHNIQUE: 2 views of the chest were obtained. FINDINGS: There are changes of a median sternotomy and left atrial appendage clip. Lungs are clear and well expanded. No focal consolidative disease, pleural effusion, or pneumothorax. The cardiac silhouette and upper mediastinal contours are normal. No acute osseous finding. IMPRESSION: Unremarkable examination. No consolidative disease or effusion.
[2017-07-25 16:18] VITALS: BP 145/67
== END 2017-07-25 16:19 ==
LOC: ERH 11:23
PROVIDERS: Emergency Medicine
DX: R00.2 Palpitations (principal)
CPT/HCPCS: 71046; 93005; 93010; 96360

== ENCOUNTER → 2017-11-06 | Day surgery (SDC) | payer OTHER, MEDICARE ==
[~2017-11-06] VITALS: Ht 188 cm; Wt 116.1 kg
[~2017-11-06] MED LIST changes: +FERROUS SULFAT325 M3 PO; +METOPROLOL TART25 M1 PO; +PRAVASTATIN SOD80 M2 PO
--- NOTE | 2017-11-06 08:15 | Operative Report ---
Operative/Inv Procedure Report Surgery Date: 11/06/17 Name of Procedure: Cataract extraction lens implantation right eye Pre-Operative Diagnosis: Age-related cataract right eye 20/80 vision Post-Operative Diagnosis: Same Estimated Blood Loss: none Surgeon/Chain Sales Consultant: Joe DEJESUS,Christ Juarez Anesthesia: local monitored anesthesi Complications: None Operative/Procedure Note Note: The patient was brought to the operating room standard monitoring equipment was attached the patient was prepped and draped in the usual fashion for intraocular surgery. A lid speculum was placed to retract the lids. The case was begun by making a temporal incision with a 2.4 mm keratome. The eye was stabilized with a Hunter ring during this incision. 1 mL of non-preserved lidocaine was introduced into the anterior chamber to provide anesthesia. The anterior chamber was then filled and deepened with viscoelastic. A curvilinear capsulorrhexis was achieved using a 30-gauge needle and is a cystotome and capsulorrhexis was finished using a Utrata forceps. A second or paracentesis incision was made temporally with a 1 mm MVR blade. The lens was then hydrodissected with balanced salt solution and found to be rotatable. The lens was emulsified using phacoemulsification and a modified four-quadrant cracking technique. The residual cortical material was removed using automated irrigation and aspiration and as much of the anterior capsular rim was cleaned as well as possible. The posterior capsule was cleaned first with the automated machine on a low setting and then manually with a Angel squeegee. The capsular bag was deepened with viscoelastic. The lens a Technis 1 21.0 Diopter placed into the bag under direct visualization and rotated so that the haptics were at 12 and 6:00. Viscoelastic was then removed from the eye by flushing it out and then by automated irrigation and aspiration. The eye was pressurized to a normal tone. 1/10 of a cc of cefuroxime solution was introduced into the anterior chamber to provide antibiotic prophylaxis. The wounds were sealed by hydrating the stroma adjacent to them and the eye was left at a proper tone after the wounds were checked and found not to be leaking. The lid speculum was removed from the orbit. Antibiotic and steroid drops were placed on the eye and then the eye was shielded. Monitoring equipment was removed from the patient and the patient was removed from the operative suite to the holding area. The patient tolerated the procedure well and will be seen in the office tomorrow.
== END ==
LOC: STS 01:54
DX: H25.9 Unspecified age-related cataract (principal); E11.9 Type 2 diabetes mellitus without complications; Z79.84 Long term (current) use of oral hypoglycemic drugs; I10 Essential (primary) hypertension; I25.10 Atherosclerotic heart disease of native coronary artery without angina pectoris; Z95.1 Presence of aortocoronary bypass graft; Z95.5 Presence of coronary angioplasty implant and graft
CPT/HCPCS: J2250; V2632